=== PATIENT | male | born 1940 | race Hispanic/Latino ===

== ENCOUNTER → 2018-11-20 | Outpatient (CLI) | payer MEDICARE ==
[~2018-11-20] MED LIST: ALBUTEROL SULFATE 0.083% 2.5 MG/3 ML INH IH ONE; ASPI-1005 PO; BISA5TAB12 PO; LORA1TAB3 PO; OMEP40CA37 PO; [UNRECOGNIZED DRUG - OTHER] PO
== END | disposition home or self-care (01) ==
LOC: RESP 08:58
PROVIDERS: ATTEND Internal Medicine Cardiovascular Disease
DX: R06.09 Other forms of dyspnea (principal); R07.9 Chest pain, unspecified
CPT/HCPCS: 94060; 94727; 94729

== ENCOUNTER → 2018-12-11 | Outpatient (CLI) | payer MEDICARE ==
[~2018-12-11] MED LIST changes: -ALBUTEROL SULFATE 0.083% 2.5 MG/3 ML INH IH ONE; +OMEP40CA13 PO; -OMEP40CA37 PO
== END | disposition home or self-care (01) ==
LOC: SHCH 09:56
PROVIDERS: ATTEND Internal Medicine Cardiovascular Disease
DX: I73.9 Peripheral vascular disease, unspecified (principal); R06.09 Other forms of dyspnea; R07.9 Chest pain, unspecified; I87.2 Venous insufficiency (chronic) (peripheral)
CPT/HCPCS: 93925; 93970

== ENCOUNTER → 2019-01-19 | Outpatient (CLI) | payer MEDICARE | END | disposition home or self-care (01) | LOC: SHCH 13:45 | PROVIDERS: ATTEND Internal Medicine Cardiovascular Disease | DX: I82.812 Embolism and thrombosis of superficial veins of left lower extremity (principal) | CPT/HCPCS: 93971 ==

== ENCOUNTER → 2020-10-17 | Outpatient (CLI) | payer MEDICARE ==
[~2020-10-17] MED LIST changes: +IOHEXOL-350 75 ML VIAL IV ONE; -OMEP40CA13 PO; +OMEP40CA21 PO
== END | disposition home or self-care (01) ==
LOC: RAH 10:18
PROVIDERS: ATTEND Internal Medicine Gastroenterology
DX: I71.4 Abdominal aortic aneurysm, without rupture (principal); K74.60 Unspecified cirrhosis of liver; R16.1 Splenomegaly, not elsewhere classified; N28.1 Cyst of kidney, acquired; I70.0 Atherosclerosis of aorta; I70.298 Other atherosclerosis of native arteries of extremities, other extremity
CPT/HCPCS: 74178; Q9967

== ENCOUNTER → 2023-08-22 | Outpatient (CLI) | payer MEDICARE ==
[~2023-08-22] MED LIST changes: +BISA-151 PO; -BISA5TAB12 PO; -IOHEXOL-350 75 ML VIAL IV ONE
== END | disposition home or self-care (01) ==
LOC: SHCH 08:06
PROVIDERS: ATTEND Internal Medicine Cardiovascular Disease
DX: I08.3 Combined rheumatic disorders of mitral, aortic and tricuspid valves (principal); I87.2 Venous insufficiency (chronic) (peripheral); I87.1 Compression of vein; R94.31 Abnormal electrocardiogram [ECG] [EKG]; R07.9 Chest pain, unspecified; R06.09 Other forms of dyspnea; I73.9 Peripheral vascular disease, unspecified; I71.40 Abdominal aortic aneurysm, without rupture, unspecified
CPT/HCPCS: 93306; 93925; 93970; 93978

== ENCOUNTER 2024-03-04 02:37 | Inpatient (IN) | payer MEDICARE ==
[~2024-03-04] VITALS: Ht 162.6 cm; Wt 88.5 kg
[2024-03-04] VITALS (7 sets, daily range): BP systolic 121–150; BP diastolic 63–81; PULSE 67–105; RESP 18–20; TEMP 98–98.7; O2SAT 98–99
--- NOTE | 2024-03-04 03:08 | ERN ---
General Chief Complaint: Altered Mental Status Stated Complaint: C/O SWELLING TO FEET,CONFUSION,DROWSINESS Time Seen by MD: 02:40 History of Present Illness Initial Comments 83-year-old male brought in by daughter for altered mentation. Patient was received cirrhosis, esophageal varices. He was a distance heavy drinker. History of cirrhosis, he takes lactulose b.i.d.. He is normally a GCS of 15 an ambulatory, but beginning earlier this afternoon the daughter notes that he was shaking, in his altered more than usual. There is no focal neurologic deficits. He is unable to follow commands. He does have some mild pedal edema. No fevers, cough congestion, vomiting diarrhea or other symptoms. Allergies: Coded Allergies: No Known Drug Allergies (Unverified Allergy, Unknown, 11/10/14) Home Meds Reported Medications [Pomi-T Dietary Vit] No Conflict Check, 1 CAP PO AM 09/21/16 Aspirin (ASPIRIN 81MG CHEW TAB) 81 Mg Tab.chew, 81 MG PO AMNOON, TAB.CHEW 09/21/16 Omeprazole (Omeprazole) 40 Mg Capsule.dr, 40 MG PO HS, CAP 09/21/16 Bisacodyl (Bisacodyl) 5 Mg Tablet.dr, 5 MG PO DAILY, TAB 11/12/14 Lorazepam (Lorazepam) 1 Mg Tablet, 1 MG PO DAILY PRN for ANXIETY/AGITATION, TAB 11/12/14 Past Medical History Past Medical History: Liver Disease, Other Medical History Other: CIRRHOSIS OF LIVER Past Surgical History: None ROS Dictation Unable to obtain, patient was altered. Physical Exam Physical Exam Dictation VITAL SIGNS: Reviewed. GENERAL APPEARANCE: Alert, not oriented, unable to follow commands. HEAD AND FACE: Non-traumatic. EYES: PERRL, pink conjunctivas, eyelid no trauma, anterior chamber clear. EARS: Pinnas intact and no signs of trauma or erythema. Ear canals clear and no discharge. TMs no erythema. NOSE: No discharge, no bleeding. OROPHARYNX: Mouth normal, teeth no caries, tongue pink. Pharynx clear, no erythema. Tonsils no exudates, no abscesses noted. Mucous membrane moist. NECK: Supple, non-tender, no thyromegaly, no masses, no JVD, no bruits. BREAST: Deferred. CHEST: No tenderness, no crepitus, no paradoxical movement, no retractions. LUNGS: Clear, well-ventilated, symmetric, no rales, no wheezing, no rhonchi, no stridor, good breath sounds bilaterally. HEART: Regular rate, regular rhythm, no murmur, no gallops. VASCULAR: No peripheral edema. ABDOMEN: Soft, positive bowel sounds, nondistended, no guarding, nontender, no rebound, no masses no hepatomegaly, no splenomegaly, no Jules's sign, no hernias. RECTAL: Deferred. GENITAL: Deferred. 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 EXTREMITIES: Nontender, full range of motion. SKIN: Color pink, dry, no turgor, no rash, no lacerations, no abrasions, no contusions. LYMPHATICS: Deferred. Results Laboratory and Microbiology Lab and Micro Result Laboratory Tests Test 03/04/24 03:18 White Blood Count 3.8 K/uL (4.8-10.8) L Red Blood Count 2.83 MIL/uL (4.50-6.20) L Hemoglobin 9.4 g/dL (14.0-18.0) L Hematocrit 27.2 % (42-54) L Mean Corpuscular Volume 96.1 fL (79-99) Mean Corpuscular Hemoglobin 33.2 pg (27.0-33.0) H Mean Corpuscular Hemoglobin Concent 34.6 g/dL (32.0-36.0) Red Cell Distribution Width 14.6 % (11.0-15.5) Platelet Count 32 K/uL (130-400) L Mean Platelet Volume 10.0 fL (7.5-10.5) Immature Granulocyte % (Auto) 0.5 % (0-1) Neutrophils (%) (Auto) 62.7 % (40.0-77.0) Lymphocytes (%) (Auto) 23.8 % (21.0-51.0) Monocytes (%) (Auto) 8.2 % (3.0-13.0) Eosinophils (%) (Auto) 4.5 % (0.0-8.0) Basophils (%) (Auto) 0.3 % (0.0-5.0) Neutrophils # (Auto) 2.4 K/uL (1.8-7.7) Lymphocytes # (Auto) 0.9 K/uL (1.0-4.8) L Monocytes # (Auto) 0.3 K/uL (0.1-1.0) Eosinophils # (Auto) 0.17 K/uL (0.00-0.70) Basophils # (Auto) 0.01 K/uL (0.00-0.20) Absolute Immature Granulocyte (auto 0.02 K/uL (0-1) Nucleated Red Blood Cells 0.0 % (0.0-0.19) Platelet Morphology Comment See comments Prothrombin Time 12.8 SEC (9.6-11.6) H Prothromb Time International Ratio 1.16 (0.85-1.15) H Sodium Level 143 mmol/L (136-145) Potassium Level 4.4 mmol/L (3.5-5.1) Chloride Level 108 mmol/L (101-111) Carbon Dioxide Level 23 mmol/L (21-32) Blood Urea Nitrogen 22 mg/dL (7-18) H Creatinine 1.5 mg/dL (0.5-1.3) H Glomerular Filtration Rate Calc 46 mL/min (>90) Random Glucose 122 mg/dL (70-105) H Lactic Acid Level 2.2 mmol/L (0.8-2.5) Total Calcium 9.6 mg/dL (8.5-10.1) Magnesium Level 2.10 mg/dL (1.80-2.40) Total Bilirubin 1.0 mg/dL (0.2-1.0) Direct Bilirubin 0.3 mg/dL (0.0-0.3) Aspartate Amino Transf (AST/SGOT) 31 U/L (10-37) Alanine Aminotransferase (ALT/SGPT) 23 U/L (12-78) Alkaline Phosphatase 153 U/L (50-136) H Ammonia 189 umol/L (11-32) *H Total Creatine Kinase 50 U/L (21-232) Troponin I High Sensitivity 14.3 ng/L (4-75) B-Type Natriuretic Peptide 42 pg/mL (0-100) Total Protein 7.2 g/dL (6.0-8.3) Albumin 3.1 g/dL (3.5-5.0) L MDM CC: Altered mentation Historian: Daughter, patient is altered and unable to provide a good history Comorbidities: Advanced age, cirrhosis limitations by social determinants: None Differential diagnosis: Altered mental status in an elderly patients with a history of cirrhosis, concerned for elevated ammonia, stroke, bleeding, infection, other. Labs show pancytopenia, WBCs 3.8, hemoglobin 9.4 and platelets of 32. Coags mildly elevated consistent with cirrhosis. Chemistry shows a creatinine 1.5 otherwise stable metabolic panel. Lactic is stable. Liver enzymes are all stable. The ammonia is 189 consistent with a hepatic encephalopathy. Troponin, CK, BNP are all stable. All labs independently order an interpreted by me. CXR ( independently ordered interpreted by me) : Borderline cardiomegaly no pleural effusions or focal infiltrates. CT head ( independently were interpreted by me ): No acute bleeding or abnormalities. Hospitalist consulted. Patient started on lactulose, will admit for hepatic encephalopathy. Family agrees with the plan. ED Course Orders Procedure Category Date Status Time Ammonia LAB 03/04/24 Complete 03:01 Cardiac Panel LAB 03/04/24 Complete 03:01 Cbc With Differential LAB 03/04/24 Complete 03:01 Basic Metabolic Panel LAB 03/04/24 Complete 03:01 B-Type Natriuretic LAB 03/04/24 Complete Peptide 03:01 Magnesium LAB 03/04/24 Complete 03:01 Prothrombin Time With LAB 03/04/24 Complete INR 03:01 Urinalysis Profile LAB 03/04/24 Logged 03:01 Lactic Acid LAB 03/04/24 Complete 03:01 Blood Cult PAWEL 03/04/24 Logged 03:01 Chest 1vw RAD 03/04/24 Taken 03:01 Ct Head/Brain W/O CT 03/04/24 Logged Contrast 03:01 Hepatic Function Panel LAB 03/04/24 Complete 03:18 Lactulose 20 Gm/30 Ml PHA 03/04/24 In Process Udcup (Constulose 04:30 Current Medications Medications (Trade) Dose Ordered Sig/Rox Route PRN Reason Start Time Stop Time Status Last Admin Dose Admin Lactulose (Constulose 20gm/ 30ml Udcup) 20 gm ONCE ONCE PO 03/04/24 04:30 03/04/24 04:31 Vital Signs Date Time Temp Pulse Resp B/P (MAP) Pulse Ox O2 Delivery O2 Flow Rate FiO2 03/04/24 03:34 87 18 139/74 100 Room Air* 0 21 03/04/24 02:40 97.9 82 20 133/79 99 Room Air DX & DISP Disposition: Inpatient Departure Impression: Primary Impression: Hepatic encephalopathy Additional Impressions: Pancytopenia, Cirrhosis Critical Time: 30 minutes (Critical Care Procedure NoteAuthorized and Performed by: meTotal critical care time: Approximately 36 minutesDue to a high probability of clinically significant, life threatening deterioration, the patient required my highest level of preparedness to intervene emergently and I personally spent this critical care time directly and personally managing the patient. This critical care time included obtaining a history; examining the patient; pulse oximetry; ordering and review of studies; arranging urgent treatment with development of a management plan; evaluation of patient's response to treatment; frequent reassessment; and, discussions with other providers.This critical care time was performed to assess and manage the high probability of imminent, life-threatening deterioration that could result in multi-organ failure. It was exclusive of separately billable procedures and treating other patients and teaching time.Please see MDM section and the rest of the note for further information on patient assessment and treatment.) Condition: Stable Referrals: KELSEY ZAMORANO MD (PCP) FAITH MOLINA DO Mar 04, 2024 03:07
[2024-03-04 03:26] LABS: BASOPHILS # (AUTO) 0.01 K/uL (0.00-0.20); BASOPHILS % (AUTO) 0.3 % (0.0-5.0); EOSINOPHILS # (AUTO) 0.17 K/uL (0.00-0.70); EOSINOPHILS % (AUTO) 4.5 % (0.0-8.0); HEMATOCRIT 27.2 % (42-54); IMMATURE GRANULOCYTE ABSOLUTE 0.02 K/uL (0-1); LYMPHOCYTES # (AUTO) 0.9 K/uL (1.0-4.8); LYMPHOCYTES % (AUTO) 23.8 % (21.0-51.0); MEAN CORPUSCULAR HEMOGLOBIN 33.2 pg (27.0-33.0); MEAN CORPUSCULAR HGB CONC 34.6 g/dL (32.0-36.0); MEAN CORPUSCULAR VOLUME 96.1 fL (79-99); MONOCYTES # (AUTO) 0.3 K/uL (0.1-1.0); MONOCYTES % (AUTO) 8.2 % (3.0-13.0); NEUTROPHILS # (AUTO) 2.4 K/uL (1.8-7.7); NEUTROPHILS % (AUTO) 62.7 % (40.0-77.0); PLATELET COUNT (AUTO) 32 K/uL (130-400); RED BLOOD CELL COUNT(AUTO) 2.83 MIL/uL (4.50-6.20); RED CELL DISTRIBUTION WIDTH 14.6 % (11.0-15.5); WHITE BLOOD COUNT (AUTO) 3.8 K/uL (4.8-10.8)
--- NOTE | 2024-03-04 03:31 | NUR ---
KAMRAN MICHAEL MADE AWARE ABOUT LACTIC ACID CRITICAL LABAT THIS TIME
[2024-03-04 03:36] LABS: CREATININE 1.5 mg/dL (0.5-1.3); POTASSIUM 4.4 mmol/L (3.5-5.1)
[2024-03-04 03:44] LABS: ALBUMIN 3.1 g/dL (3.5-5.0); BILIRUBIN,DIRECT 0.3 mg/dL (0.0-0.3); MAGNESIUM 2.1 mg/dL (1.80-2.40); TOTAL PROTEIN, SERUM 7.2 g/dL (6.0-8.3)
[2024-03-04 03:45] LABS: INR 1.16 (0.85-1.15); PROTHROMBIN TIME 12.8 SEC (9.6-11.6)
[2024-03-04 03:47] LABS: B-TYPE NATRIURETIC PEPTIDE 42 pg/mL (0-100)
--- NOTE | 2024-03-04 03:56 | NUR ---
KAMRAN MICHAEL MADE AWARE OF CRITICAL AMMONIA LAB LEVEL AT THIS TIME
--- NOTE | 2024-03-04 04:19 | NUR ---
MARY KATE CAO AT BEDSIDE AT THIS TIME
[2024-03-04] MEDS: LACTULOSE 20 GM/30 ML UDCUP PO ONE (04:26)
[2024-03-04] MEDS ORDERED: hydrALAZine 20MG/ML VIAL IV PRN ×2 (04:30→11:00)
[2024-03-04] MEDS ORDERED: acetaMINOPHEN 325 MG TAB PO PRN (04:30)
[2024-03-04] MEDS ORDERED: ondanSETRON 4MG INJ IV PRN (04:30)
--- NOTE | 2024-03-04 04:41 | HP ---
History of Present Illness Reason for Visit: [facility] History of Present Illness Mr. Ceballos is an 83-year-old male that was seen and examined today on 03/04/2024. Patient is a poor historian and personal health. Patient's daughter Chantel Ceballos is at bedside and able to provide the following information. Patient was brought to the emergency department with a chief complaint of altered mental status. Onset was 03/03/2024 at 9:00 p.m.. Location is to head. Duration is constant. Character is described as" like he can not make full sentences. " there was no alleviating factors. Symptoms are aggravated with missing doses of lactulose. Today in the emergency department WBCs 3.8, hemoglobin 9.4, hematocrit 27.2, platelets 32, ammonia 189. Emergency room physician recommended patient be admitted with a diagnosis of hepatic encephalopathy. Past Medical History Patient History: Family history: Cardiovascular disease FATHER ( IN HIS SLEEP AT AGE 77YEARS) Family history: Diabetes mellitus MOTHER BROTHER BROTHER SISTER No Family History of: Cancer Chronic obstructive lung disease Family history: Alzheimer's disease Family history: Asthma Family history: Hypertension Parkinson's disease Stroke ADDITIONAL PAST MEDICAL HISTORY: [Alcoholic Liver cirrhosis, anxiety, esophageal varices] SOCIAL HISTORY: [Negative for smoking. Patient was a heavy alcohol user but quit in 2003. Negative drug use. Patient lives with his daughter Chantel. Patient requires assistance with his ADLs. Patient has good access to health care through his insurance. 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 Dyspnea, Edema, Lt Headedness, Other Gastrointestinal: No: Nausea, Vomiting, Abdominal Pain, Diarrhea, Constipation, Melena, Hematochezia, Other Genitourinary: No Dysuria, No Frequency, No Incontinence, No Hematuria, No Retention, No Other Musculoskeletal: No: other, neck pain, shoulder pain, arm pain, back pain, hand pain, leg pain, foot pain Skin: No Urticaria, No Rash, No Other Neurological: Confusion; No: Weakness, Numbness, Incoordination, Change in speech, Seizures, Other Allergies: Coded Allergies: No Known Drug Allergies (Unverified Allergy, Unknown, 11/10/14) Scheduled Aspirin (Aspirin 81MG Chew Tab), 81 MG PO AMNOON, (Reported) Bisacodyl (Bisacodyl), 5 MG PO DAILY, (Reported) Omeprazole (Omeprazole), 40 MG PO HS, (Reported) [Pomi-T Dietary Vit], 1 CAP PO AM, (Reported) Scheduled PRN Lorazepam (Lorazepam), 1 MG PO DAILY PRN for ANXIETY/AGITATION, (Reported) Exam Vital Signs Vital Signs Date Time Temp Pulse Resp B/P (MAP) Pulse Ox O2 Delivery O2 Flow Rate FiO2 03/04/24 03:34 87 18 139/74 100 Room Air* 0 21 03/04/24 02:40 97.9 General Appearance: Alert, Oriented X3, Cooperative, moderate distress HEENT: Atraumatic, EOMI Respiratory: Clear to auscultation, Normal air movement, NL respiratory effort Cardiovascular: Regular rate, Regular rhythm, Normal S1, Normal S2 Abdominal: Normal bowel sounds, Soft, No tenderness Extremities: Other (Plus two pitting edema to bilateral lower extremities) Skin: No significant lesion Neuro: Other (Unable to assess) Psych/Mental Status: Other (Patient is confused) Assessment/Plan ASSESSMENT: [ Hepatic encephalopathy, POA Liver cirrhosis, POA Thrombocytopenia, POA Normocytic hyperchromic anemia, POA Hyperlactatemia ] PLAN: [ Admit patient to medical floor as inpatient status. Trend patient's ammonia level. Administer lactulose 20 g/30 mL every 12 hours. Follow up with the radiology report on CT scan of head Fall precautions. Check iron panel Check serum ferritin Check LDH, reticulocyte count, peripheral smear Consider making patient NPO and consulting Gastroenterology if any signs of GI bleed. Check stool for occult blood. Decided against fluid resuscitation 30 mL/kg due to patient having plus two pitting edema to bilateral lower extremities and his history of liver cirrhosis Repeat lactic acid in a.m. Monitor intake and output every shift Weight patient daily 1500 mL daily fluid restriction GI prophylaxis, famotidine 20 mg by mouth once daily. DVT prophylaxis, Too's and SCDs ADVANCED CARE PLANNING 1. Which of the following were discussed? Hospice Care - Yes Therapeutic options - Yes Advance Directives - Yes- patient does not have any advance directives in place at this time, however his daughter Chantel can make decisions for him if he becomes unable. Other discussions - patient wishes to remain a full code at this time 2. Discussed with who? Patient 3. Voluntary nature of this service was explained to the patient? Yes 4. Amount of time spent - ____ 16 minutes ___ 5. Reviewed by Physician? (if this service was performed by NPP) Yes This document was generated in part using voice recognition software, occasional wrong word or sound alike substitutions may have occurred due to the inherent limitations of voice recognition software. Read the chart carefully and recognize using context, where the substitutions have occurred. Although every effort was made to edit the content, baseball glove shaper and typing errors may occur ATTESTATION BY PHYSICIAN I have seen and examined the patient. I reviewed the documentation, medical decision making, and treatment plan as noted by the mid-level provider above. I agree with the findings and plan of care. KILEY MÁRQUEZ [facility] Mar 04, 2024 04:41
[2024-03-04] MEDS ORDERED: morPHINE 2 MG SYG IVP PRN (05:00)
--- NOTE | 2024-03-04 05:48 | NUR ---
REPORT GIVEN TO MOOSE GUY AT THIS TIME
[2024-03-04 05:51] LABS: APPEARANCE,URINE CLEAR (CLEAR); BILIRUBIN,URINE NEGATIVE (NEGATIVE); COLOR,URINE YELLOW (YELLOW); GLUCOSE, URINE (UA) NEGATIVE (NEGATIVE); KETONES,URINE NEGATIVE (NEGATIVE); LEUKOCYTE ESTERASE ,URINE NEGATIVE Leu/uL (NEGATIVE); NITRATE,URINE NEGATIVE (NEGATIVE); OCCULT BLOOD,URINE LARGE (NEGATIVE); PROTEIN,URINE 20 mg/dL (NEGATIVE); UROBILINOGEN,URINE 0.2 mg/dL (0.2-1.0)
[2024-03-04 06:04] LABS: ADD UA MICROSCOPIC YES
[2024-03-04 06:07] LABS: BACTERIA,URINE RARE /HPF (None Seen); MUCUS,URINE RARE LPF (None Seen); RBC,URINE 51-100 /HPF (0-1)
[2024-03-04 07:29] LABS: RETICULOCYTE % (AUTO) 1.79 % (0.42-2.23)
[2024-03-04 08:21] LABS: % IRON SATURATION 28.7 % (30-44)
--- NOTE | 2024-03-04 08:28 | HMCIMG ---
CT HEAD WITHOUT CONTRAST INDICATION: Altered mental status TECHNIQUE: Noncontrast axial helical CT images from the vertex through the skull base using 5 mm slice thickness without contrast material. Coronal and sagittal reconstructions were also included. Dose reduction techniques was used using integrated, automated and adaptive dose reduction exposure control. CT was performed with one or more of the following dose reduction techniques: Automated exposure control, adjustment of the mA and/or kV according to patient size, or use of iterative reconstruction technique. COMPARISON: None FINDINGS: Diagnostic sensitivity of this examination is limited by patient motion artifact. Scattered and coalescent subcortical and periventricular white matter low attenuating areas likely represent residual of chronic small vessel arteriopathy and/or remote vascular insult. Generalized mild cerebral cortical atrophy is present.. No evidence for abnormal extra-axial fluid collections or masses. The ventricles and sulci are normal in size and configuration. No evidence for intracranial parenchymal, epidural, or subdural hemorrhage, mass effect or midline shift. The aleman-white matter differentiation is well preserved. No secondary evidence to suggest acute ischemia. Mild calcific plaque is present along the zamora of the cavernous segments of both internal carotid arteries. The brainstem and cerebellum appear normal. The visualized orbits appear unremarkable. The visible paranasal sinuses and mastoid air cells are clear. The calvarium appears normal. IMPRESSION: Limitations as reported. Chronic white matter ischemic changes, mild brain atrophy, and arteriosclerotic disease as described, without acute component.
--- NOTE | 2024-03-04 08:30 | HMCIMG ---
PORTABLE CHEST RADIOGRAPH INDICATION: chest pain COMPARISON: 09/21/2016 FINDINGS: Heart size is normal. The pulmonary vascularity and sandra appear normal. No abnormal pulmonary parenchymal opacity or consolidation identified. No significant pleural effusion noted. No pneumothorax detected. IMPRESSION: No radiographic evidence for any acute cardiopulmonary process.
[2024-03-04] MEDS: FAMOTIDINE 20MG TAB PO SCH (09:36)
[2024-03-04] MEDS: LACTULOSE 20 GM/30 ML UDCUP PO SCH (09:36)
[2024-03-04] MEDS ORDERED: PoTASSium chloRIDE 20MEQ/100ML 100 ML IV PRN (12:00)
[2024-03-04] MEDS ORDERED: PoTASSium chl 10% ELIXIR 20MEQ 20 MEQ/15 ML UDCUP PO PRN (12:00)
[2024-03-04] MEDS ORDERED: PoTASSium chloRIDE 20MEQ ER 20 MEQ ERTAB PO PRN (12:00)
--- NOTE | 2024-03-04 17:39 | NUR ---
Discharge Planning" Pt. lives with his spouse and children. Contact number is for his daughter Chantel Ceballos at . PCP is Dr. Zhang Osman and preferred pharmacy is [facility]. Pt. is independent with ADL's. Sometimes requires assistance. His daughter is his provider for 21 hours weekly. No home health services. Ambulates with a walker. No other DME. DCP is for home. No d/c needs at this time. Addendum: 03/04/24 at 1742 by AMBER ROSARIO RN CM Amended: Links added.
--- NOTE | 2024-03-04 19:18 | PN ---
[facility] PROGRESS NOTE Date of Service: Mar 04, 2024 Time of Service: 18:43 SUBJECTIVE: [ ] Mr. Ceballos is an 83-year-old male that was seen and examined today on 03/04/2024. Patient is a poor historian and personal health. Patient's daughter Chantel Ceballos is at bedside and able to provide the following information. Patient was brought to the emergency department with a chief complaint of altered mental status. Onset was 03/03/2024 at 9:00 p.m.. Location is to head. Duration is constant. Character is described as" like he can not make full sentences. " there was no alleviating factors. Symptoms are aggravated with missing doses of lactulose. 03/04- patient Was seen at the bedside, with his daughter present. patient is still in altered mental status and unable to understand and speak in full sentences. spoke with his daughter about his mental status baseline, she says at home he speaks well and has a good memory. he usually continues to take lactulose syrup at home, but when he misses a dosage he develops a same symptoms. She says he was admitted for hepatic encephalopathy at [facility] around February 21, 2024 and was in the hospital for about 20 days. she says they follow Oncology outpatient in the biopsy results are pending. We will continue the patient on lactulose 20 mg b.i.d. repeat ammonia levels came down from 189 to 55. Vitals stable. WBC 3.8, HB 9.4, MCV 96.1, platelet count 32, immature reticulocyte fraction 13.3, BUN22 , creatinine 1.5, GFR 46 , iron panel iron 98, TIBC 341, % saturation 28.7. Serum ferritin pending. AST31 ALT23 , ALP 153, ammonia 189. PT 12.8, INR 1.16. Occult stool blood positive. Gastrology consultation noted pending on the recommendations.we will repeat the labs in the a.m. REVIEW OF SYSTEMS CONSTITUTIONAL: Denies fevers, chills, or night sweats. No unintentional weight loss reported. NEUROLOGICAL: Denies headache, amaurosis fugax, motor weakness, sensory deficit, vertigo/spinning sensation, gait abnormalities, or tremors. ENT: No hearing loss, otalgia, otorrhea, rhinitis, rhinorrhea, hoarseness, or sore throat. CARDIOVASCULAR: Denies any exertional angina, dyspnea on exertion, orthopnea, paroxysmal nocturnal dyspnea, palpitations, life-threatening arrhythmias, claudication. PULMONARY: Denies any shortness of breath, cough, phlegm/sputum, hemoptysis, pleuritic chest pain. SLEEP: Denies morning headaches, daytime somnolence or napping. Denies difficulty falling asleep, staying asleep, waking from sleep. Denies knowledge of snoring. GASTROINTESTINAL: Denies any type of dysphagia to either liquids or solids. De nies nausea, vomiting, pyrosis, early satiety, abdominal pain, diarrhea, constipation, or changes in stool consistency or caliber. Denies coffee-ground emesis, hematemesis, hematochezia, or melanotic stools. GENITOURINARY: Denies frequency, urgency, nocturia, hematuria or incontinence (Storage/Irritative symptoms.) Low urinary stream, straining to void, urinary intermittency or hesitancy, splitting of the voiding stream, terminal dribbling. ENDOCRINOLOGIC: Denies polyuria, polydipsia, polyphagia or heat/cold intolerances. HEMATOLOGIC: Denies thrombophilia/previous clots, or coagulopathy/bleeding disorders. ONCOLOGIC: Denies personal history of malignancy. DERMATOLOGIC: Denies rashes or pruritus. PSYCHIATRIC: Denies any suicidal or homicidal ideation. Denies hallucinations. PHYSICAL EXAM GENERAL APPEARANCE: The patient is awake, alert, and oriented, in no acute cardiopulmonary distress. NEUROLOGICAL: Cranial nerves II-XII grossly intact. Motor is 5/5 in bilateral upper and lower extremities proximal to distal. No sensory deficits. HEENT: Face is symmetric. Pupils are equal and reactive. Extraocular movements are intact. NECK: Supple. No JVD. No thyromegaly. No submental, submandibular, pre- /postauricular, occipital or supraclavicular lymphadenopathy. CHEST: Normal chest expansion. No Telemetry. LUNGS: Absence of any rales, rhonchi or any wheezing. CARDIOVASCULAR: Regular. S1 and S2 normal. No appreciable rubs, murmurs or gallops. ABDOMEN: Soft, nontender, and nondistended. There is no rebound, voluntary guarding, or rigidity. : Deferred. No Tang. EXTREMITIES: Non-edematous and not cyanotic. No clubbing. Good capillary refill. SKIN: No skin breakdown. Vital Signs (last 8hr) Date Time Temp Pulse Resp B/P (MAP) Pulse Ox O2 Delivery O2 Flow Rate FiO2 03/04/24 16:41 98.1 67 18 121/63 96 Room Air 03/04/24 11:34 98.1 90 18 121/67 99 Room Air LABS: Laboratory: Test 03/04/24 15:52 03/04/24 13:20 03/04/24 09:40 03/04/24 07:20 Range/Units Whole Blood Glucose 103 70-110 MG/DL Stool Occult Blood POSITIVE H NEGATIVE Ammonia 55 #H 11-32 umol/L Reticulocyte Count (auto) 1.11390 0.42-2.23 % Immature Reticulocyte Fraction 13.30 H 0.18-0.48 % Lactic Acid Level 3.0 H 0.8-2.5 mmol/L Iron Level 98 65-175 mcg/dL Total Iron Binding Capacity 341 250-450 mcg/dL Percent Iron Saturation 28.7 L 30-44 % Lactate Dehydrogenase 195 81-234 U/L Test 03/04/24 05:38 03/04/24 03:18 Range/Units Urine Color YELLOW YELLOW Urine Appearance CLEAR CLEAR Urine pH 6.0 5.0-8.0 Urine Specific [place] 1.022 1.001-1.031 Urine Protein 20 H NEGATIVE mg/dL Urine Glucose (UA) NEGATIVE NEGATIVE mg/dL Urine Ketones NEGATIVE NEGATIVE mg/dL Urine Occult Blood LARGE H NEGATIVE Urine Nitrate NEGATIVE NEGATIVE Urine Bilirubin NEGATIVE NEGATIVE mg/dL Urine Urobilinogen 0.2 0.2-1.0 mg/dL Urine Leukocyte Esterase NEGATIVE NEGATIVE [place]/uL Urine RBC 51-100 H 0-1 /HPF Urine WBC 2-5 H 0-1 /HPF Urine Bacteria RARE None Seen /HPF White Blood Count 3.8 L 4.8-10.8 K/uL Red Blood Count 2.83 L 4.50-6.20 MIL/uL Hemoglobin 9.4 L 14.0-18.0 g/dL Hematocrit 27.2 L 42-54 % Mean Corpuscular Volume 96.1 79-99 fL Mean Corpuscular Hemoglobin 33.2 H 27.0-33.0 pg Mean Corpuscular Hemoglobin Concent 34.6 32.0-36.0 g/dL Red Cell Distribution Width 14.6 11.0-15.5 % Platelet Count 32 L 130-400 K/uL Mean Platelet Volume 10.0 7.5-10.5 fL Immature Granulocyte % (Auto) 0.5 0-1 % Neutrophils (%) (Auto) 62.7 40.0-77.0 % Lymphocytes (%) (Auto) 23.8 21.0-51.0 % Monocytes (%) (Auto) 8.2 3.0-13.0 % Eosinophils (%) (Auto) 4.5 0.0-8.0 % Basophils (%) (Auto) 0.3 0.0-5.0 % Neutrophils # (Auto) 2.4 1.8-7.7 K/uL Lymphocytes # (Auto) 0.9 L 1.0-4.8 K/uL Monocytes # (Auto) 0.3 0.1-1.0 K/uL Eosinophils # (Auto) 0.17 0.00-0.70 K/uL Basophils # (Auto) 0.01 0.00-0.20 K/uL Absolute Immature Granulocyte (auto 0.02 0-1 K/uL Nucleated Red Blood Cells 0.0 0.0-0.19 % Platelet Morphology Comment See comments Prothrombin Time 12.8 H 9.6-11.6 SEC Prothromb Time International Ratio 1.16 H 0.85-1.15 Sodium Level 143 136-145 mmol/L Potassium Level 4.4 3.5-5.1 mmol/L Chloride Level 108 101-111 mmol/L Carbon Dioxide Level 23 21-32 mmol/L Blood Urea Nitrogen 22 H 7-18 mg/dL Creatinine 1.5 H 0.5-1.3 mg/dL Glomerular Filtration Rate Calc 46 >90 mL/min Random Glucose 122 H 70-105 mg/dL Total Calcium 9.6 8.5-10.1 mg/dL Magnesium Level 2.10 1.80-2.40 mg/dL Total Bilirubin 1.0 0.2-1.0 mg/dL Direct Bilirubin 0.3 0.0-0.3 mg/dL Aspartate Amino Transf (AST/SGOT) 31 10-37 U/L Alanine Aminotransferase (ALT/SGPT) 23 12-78 U/L Alkaline Phosphatase 153 H 50-136 U/L Total Creatine Kinase 50 21-232 U/L Troponin I High Sensitivity 14.3 4-75 ng/L B-Type Natriuretic Peptide 42 0-100 pg/mL Total Protein 7.2 6.0-8.3 g/dL Albumin 3.1 L 3.5-5.0 g/dL Current Medications Medications (Trade) Dose Ordered Sig/Rox Route PRN Reason Start Time Stop Time Status Last Admin Dose Admin Acetaminophen (TYLenol 325MG TAB) 650 mg Q6H PRN PO TEMPERATURE GREATER THAN 101.5 03/04/24 04:30 04/03/24 04:29 Famotidine (Pepcid 20mg Tab) 20 mg DAILY PO 03/04/24 09:00 04/03/24 08:59 03/04/24 09:36 20 MG Hydralazine HCl (APRESOLine 20MG INJ) 10 mg Q6H PRN IV For:SBP above 160;DBP above 90 03/04/24 04:30 03/04/24 10:39 DC Hydralazine HCl (APRESOLine 20MG INJ) 20 mg Q6H PRN IV ADMINISTER FOR SBP > 160 03/04/24 11:00 04/03/24 10:59 Lactulose (Constulose 20gm/ 30ml Udcup) 20 gm BID PO 03/04/24 09:00 04/03/24 08:59 03/04/24 09:36 20 GM Morphine Sulfate (morPHINE 2MG SYG) 2 mg Q4H PRN IVP SEVERE PAIN (7-10) 03/04/24 05:00 03/11/24 04:59 Ondansetron HCl (zoFRAN 4MG INJ) 4 mg Q6H PRN IV NAUSEA/VOMITING 03/04/24 04:30 04/03/24 04:29 Potassium Chloride 100 ml @ 100 mls/hr AD PRN IV POTASSIUM PROTOCOL 03/04/24 12:00 04/03/24 11:59 Potassium Chloride (K-Dur/Klor-Con 20meq) 20 meq AD PRN PO POTASSIUM PROTOCOL 03/04/24 12:00 04/03/24 11:59 Potassium Chloride (KCl 10% Elixir 20meq/15ml) 20 meq AD PRN PO POTASSIUM PROTOCOL 03/04/24 12:00 04/03/24 11:59 DIAGNOSTICS / RADIOLOGY: [ ] ASSESSMENT: [ Hepatic encephalopathy, POA Liver cirrhosis, POA Thrombocytopenia, POA MARY ANN on CKD POA Normocytic hyperchromic anemia, POA Hyperlactatemia] PLAN: on consistent carb diet continue trending patient's ammonia level. continue Administer lactulose 20 g/30 mL every 12 hours. Follow up with the radiology report on CT scan of head-hronic white matter ischemic changes, mild brain atrophy, and arteriosclerotic disease as described, without acute component. Fall precautions. GI consultation noted pending on the recommendations stool for occult blood. positive Decided against fluid resuscitation 30 mL/kg due to patient having plus two pitting edema to bilateral lower extremities and his history of liver cirrhosis Repeat lactic acid in a.m, ferritin levels, CbP, CMP, ammonia. Monitor intake and output every shift Weight patient daily 1500 mL daily fluid restriction GI prophylaxis, famotidine 20 mg by mouth once daily. DVT prophylaxis, Too's and SCDs ATTESTATION BY PHYSICIAN I have seen and examined the patient. I reviewed the documentation, medical decision making, and treatment plan as noted by the mid-level provider above. I agree with the findings and plan of care. Es Patel MD, AISHWARYA MD Mar 04, 2024 19:17
[2024-03-05] VITALS (8 sets, daily range): BP systolic 104–130; BP diastolic 50–71; PULSE 51–92; RESP 18–20; TEMP 97.8–99.4; O2SAT 98–99
[2024-03-05 05:05] LABS: BASOPHILS # (AUTO) 0.02 K/uL (0.00-0.20); BASOPHILS % (AUTO) 0.7 % (0.0-5.0); EOSINOPHILS # (AUTO) 0.14 K/uL (0.00-0.70); EOSINOPHILS % (AUTO) 4.6 % (0.0-8.0); HEMATOCRIT 25.8 % (42-54); LYMPHOCYTES # (AUTO) 0.5 K/uL (1.0-4.8); LYMPHOCYTES % (AUTO) 17.2 % (21.0-51.0); MEAN CORPUSCULAR HEMOGLOBIN 32.8 pg (27.0-33.0); MEAN CORPUSCULAR HGB CONC 32.9 g/dL (32.0-36.0); MEAN CORPUSCULAR VOLUME 99.6 fL (79-99); MONOCYTES # (AUTO) 0.4 K/uL (0.1-1.0); MONOCYTES % (AUTO) 11.6 % (3.0-13.0); NEUTROPHILS % (AUTO) 65.9 % (40.0-77.0); PLATELET COUNT (AUTO) 29 K/uL (130-400); RED BLOOD CELL COUNT(AUTO) 2.59 MIL/uL (4.50-6.20); RED CELL DISTRIBUTION WIDTH 14.9 % (11.0-15.5)
[2024-03-05 05:27] LABS: CREATININE 1.5 mg/dL (0.5-1.3); MAGNESIUM 1.8 mg/dL (1.80-2.40); PHOSPHORUS 3.2 mg/dL (2.5-4.9); POTASSIUM 3.9 mmol/L (3.5-5.1)
[2024-03-05 06:31] LABS: EOSINOPHILS % (MANUAL) 5 % (1-6); LYMPHOCYTES % (MANUAL) 17 % (22-44); MONOCYTES % (MANUAL) 4 % (2-9); SEGMENTED NEUTROPHILS % 74 % (40-70); TOTAL CELLS COUNTED 100
[2024-03-05 06:32] LABS: MAN.DIFF COMMENT-IMPRESSION MANUAL DIFFERENTIAL; PLATELET MORPHOLOGY COMMENT MARKED DECREASE; WBC MORPHOLOGY HYPERSEGMENT NEUT 1+
[2024-03-05] MEDS ORDERED: LACTULOSE 20 GM/30 ML UDCUP PO PRN (11:00)
[2024-03-05] MEDS: LACTULOSE 20 GM/30 ML UDCUP PO PRN (13:47)
--- NOTE | 2024-03-05 13:58 | PN ---
[facility] PROGRESS NOTE Date of Service: Mar 05, 2024 Time of Service: 13:57 SUBJECTIVE: [ ] Mr. Ceballos is an 83-year-old male that was seen and examined today on 03/04/2024. Patient is a poor historian and personal health. Patient's daughter Chantel Ceballos is at bedside and able to provide the following information. Patient was brought to the emergency department with a chief complaint of altered mental status. Onset was 03/03/2024 at 9:00 p.m.. Location is to head. Duration is constant. Character is described as" like he can not make full sentences. " there was no alleviating factors. Symptoms are aggravated with missing doses of lactulose. 03/04- patient Was seen at the bedside, with his daughter present. patient is still in altered mental status and unable to understand and speak in full sentences. spoke with his daughter about his mental status baseline, she says at home he speaks well and has a good memory. he usually continues to take lactulose syrup at home, but when he misses a dosage he develops a same symptoms. She says he was admitted for hepatic encephalopathy at [facility] around February 21, 2024 and was in the hospital for about 20 days. she says they follow Oncology outpatient in the biopsy results are pending. We will continue the patient on lactulose 20 mg b.i.d. repeat ammonia levels came down from 189 to 55. Vitals stable. WBC 3.8, HB 9.4, MCV 96.1, platelet count 32, immature reticulocyte fraction 13.3, BUN22 , creatinine 1.5, GFR 46 , iron panel iron 98, TIBC 341, % saturation 28.7. Serum ferritin pending. AST31 ALT23 , ALP 153, ammonia 189. PT 12.8, INR 1.16. Occult stool blood positive. Gastrology consultation noted pending on the recommendations.we will repeat the labs in the a.m. 03/05-patient was seen at the bedside, with his daughter present. Patient seems to be understanding, better than yesterday. His altered mental status has imp roved. Patient only had 1 bowel movement yesterday, ammonia last night was 80 and increased to 112 today morning. Gave 45 mL of lactulose at around 1:00 p.m., with scheduled dose of lactulose 30 mL in the morning. Patient still did not have any bowel movement, he has a scheduled dose of 30 mL at night. Change the dose of lactulose from 30 mL b.i.d. to t.i.d. gastrology consultation noted. Ordered for an EGD tomorrow morning NPO after midnight.His vitals are stable. Remarkable labs WBC 3, HB came down to 8.5 from 9.4, platelet count down from 32 to 29, BUN 21, creatinine 1.5, GFR 46. We will recheck the ammonia levels q.12h. And labs in the a.m. REVIEW OF SYSTEMS CONSTITUTIONAL: Denies fevers, chills, or night sweats. No unintentional weight loss reported. NEUROLOGICAL: Denies headache, amaurosis fugax, motor weakness, sensory deficit, vertigo/spinning sensation, gait abnormalities, or tremors. ENT: No hearing loss, otalgia, otorrhea, rhinitis, rhinorrhea, hoarseness, or sore throat. CARDIOVASCULAR: Denies any exertional angina, dyspnea on exertion, orthopnea, paroxysmal nocturnal dyspnea, palpitations, life-threatening arrhythmias, claudication. PULMONARY: Denies any shortness of breath, cough, phlegm/sputum, hemoptysis, pleuritic chest pain. SLEEP: Denies morning headaches, daytime somnolence or napping. Denies difficulty falling asleep, staying asleep, waking from sleep. Denies knowledge of snoring. GASTROINTESTINAL: Denies any type of dysphagia to either liquids or solids. Denies nausea, vomiting, pyrosis, early satiety, abdominal pain, diarrhea, con stipation, or changes in stool consistency or caliber. Denies coffee-ground emesis, hematemesis, hematochezia, or melanotic stools. GENITOURINARY: Denies frequency, urgency, nocturia, hematuria or incontinence (Storage/Irritative symptoms.) Low urinary stream, straining to void, urinary intermittency or hesitancy, splitting of the voiding stream, terminal dribbling. ENDOCRINOLOGIC: Denies polyuria, polydipsia, polyphagia or heat/cold intolerances. HEMATOLOGIC: Denies thrombophilia/previous clots, or coagulopathy/bleeding disorders. ONCOLOGIC: Denies personal history of malignancy. DERMATOLOGIC: Denies rashes or pruritus. PSYCHIATRIC: Denies any suicidal or homicidal ideation. Denies hallucinations. PHYSICAL EXAM GENERAL APPEARANCE: The patient is awake, alert, and oriented, in no acute card iopulmonary distress. NEUROLOGICAL: Cranial nerves II-XII grossly intact. Motor is 5/5 in bilateral upper and lower extremities proximal to distal. No sensory deficits. HEENT: Face is symmetric. Pupils are equal and reactive. Extraocular movements are intact. NECK: Supple. No JVD. No thyromegaly. No submental, submandibular, pre- /postauricular, occipital or supraclavicular lymphadenopathy. CHEST: Normal chest expansion. No Telemetry. LUNGS: Absence of any rales, rhonchi or any wheezing. CARDIOVASCULAR: Regular. S1 and S2 normal. No appreciable rubs, murmurs or gallops. ABDOMEN: Soft, nontender, and nondistended. There is no rebound, voluntary guarding, or rigidity. : Deferred. No Tang. EXTREMITIES: Non-edematous and not cyanotic. No clubbing. Good capillary refill. SKIN: No skin breakdown. Vital Signs (last 8hr) Date Time Temp Pulse Resp B/P (MAP) Pulse Ox O2 Delivery O2 Flow Rate FiO2 03/05/24 11:53 98.2 51 18 104/50 98 Room Air 03/05/24 08:13 99.3 68 18 128/56 98 Room Air LABS: Laboratory: Test 03/05/24 11:23 03/05/24 09:45 03/05/24 04:45 03/04/24 13:20 Range/Units Whole Blood Glucose 134 H 70-110 MG/DL Ammonia 112 *H 11-32 umol/L White Blood Count 3.0 L 4.8-10.8 K/uL Red Blood Count 2.59 L 4.50-6.20 MIL/uL Hemoglobin 8.5 L 14.0-18.0 g/dL Hematocrit 25.8 L 42-54 % Mean Corpuscular Volume 99.6 H 79-99 fL Mean Corpuscular Hemoglobin 32.8 27.0-33.0 pg Mean Corpuscular Hemoglobin Concent 32.9 32.0-36.0 g/dL Red Cell Distribution Width 14.9 11.0-15.5 % Platelet Count 29 L 130-400 K/uL Mean Platelet Volume 9.7 7.5-10.5 fL Immature Granulocyte % (Auto) 0.0 0-1 % Neutrophils (%) (Auto) 65.9 40.0-77.0 % Lymphocytes (%) (Auto) 17.2 L 21.0-51.0 % Monocytes (%) (Auto) 11.6 3.0-13.0 % Eosinophils (%) (Auto) 4.6 0.0-8.0 % Basophils (%) (Auto) 0.7 0.0-5.0 % Neutrophils # (Auto) 2.0 1.8-7.7 K/uL Lymphocytes # (Auto) 0.5 L 1.0-4.8 K/uL Monocytes # (Auto) 0.4 0.1-1.0 K/uL Eosinophils # (Auto) 0.14 0.00-0.70 K/uL Basophils # (Auto) 0.02 0.00-0.20 K/uL Absolute Immature Granulocyte (auto 0.00 0-1 K/uL Segmented Neutrophils % 74 H 40-70 % Lymphocytes % (Manual) 17 L 22-44 % Monocytes % (Manual) 4 2-9 % Eosinophils % (Manual) 5 1-6 % Nucleated Red Blood Cells 0.0 0.0-0.19 % Differential Comment MANUAL DIFFERENTIAL White Cell Morphology Comment HYPERSEGMENT NEUT 1+ Platelet Morphology Comment MARKED DECREASE Red Blood Cell Morphology NORMAL Sodium Level 142 136-145 mmol/L Potassium Level 3.9 3.5-5.1 mmol/L Chloride Level 108 101-111 mmol/L Carbon Dioxide Level 23 21-32 mmol/L Blood Urea Nitrogen 21 H 7-18 mg/dL Creatinine 1.5 H 0.5-1.3 mg/dL Glomerular Filtration Rate Calc 46 >90 mL/min Random Glucose 107 H 70-105 mg/dL Lactic Acid Level 2.0 0.8-2.5 mmol/L Total Calcium 9.0 8.5-10.1 mg/dL Phosphorus Level 3.2 2.5-4.9 mg/dL Magnesium Level 1.80 1.80-2.40 mg/dL Ferritin 98 30-400 ng/mL Stool Occult Blood POSITIVE H NEGATIVE Test 03/04/24 07:20 03/04/24 05:38 03/04/24 03:18 Range/Units Reticulocyte Count (auto) 1.46984 0.42-2.23 % Immature Reticulocyte Fraction 13.30 H 0.18-0.48 % Iron Level 98 65-175 mcg/dL Total Iron Binding Capacity 341 250-450 mcg/dL Percent Iron Saturation 28.7 L 30-44 % Lactate Dehydrogenase 195 81-234 U/L Urine Color YELLOW YELLOW Urine Appearance CLEAR CLEAR Urine pH 6.0 5.0-8.0 Urine Specific [place] 1.022 1.001-1.031 Urine Protein 20 H NEGATIVE mg/dL Urine Glucose (UA) NEGATIVE NEGATIVE mg/dL Urine Ketones NEGATIVE NEGATIVE mg/dL Urine Occult Blood LARGE H NEGATIVE Urine Nitrate NEGATIVE NEGATIVE Urine Bilirubin NEGATIVE NEGATIVE mg/dL Urine Urobilinogen 0.2 0.2-1.0 mg/dL Urine Leukocyte Esterase NEGATIVE NEGATIVE [place]/uL Urine RBC 51-100 H 0-1 /HPF Urine WBC 2-5 H 0-1 /HPF Urine Bacteria RARE None Seen /HPF Prothrombin Time 12.8 H 9.6-11.6 SEC Prothromb Time International Ratio 1.16 H 0.85-1.15 Total Bilirubin 1.0 0.2-1.0 mg/dL Direct Bilirubin 0.3 0.0-0.3 mg/dL Aspartate Amino Transf (AST/SGOT) 31 10-37 U/L Alanine Aminotransferase (ALT/SGPT) 23 12-78 U/L Alkaline Phosphatase 153 H 50-136 U/L Total Creatine Kinase 50 21-232 U/L Troponin I High Sensitivity 14.3 4-75 ng/L B-Type Natriuretic Peptide 42 0-100 pg/mL Total Protein 7.2 6.0-8.3 g/dL Albumin 3.1 L 3.5-5.0 g/dL Current Medications Medications (Trade) Dose Ordered Sig/Rox Route PRN Reason Start Time Stop Time Status Last Admin Dose Admin Acetaminophen (TYLenol 325MG TAB) 650 mg Q6H PRN PO TEMPERATURE GREATER THAN 101.5 03/04/24 04:30 04/03/24 04:29 Famotidine (Pepcid 20mg Tab) 20 mg DAILY PO 03/04/24 09:00 04/03/24 08:59 03/05/24 08:58 20 MG Hydralazine HCl (APRESOLine 20MG INJ) 10 mg Q6H PRN IV For:SBP above 160;DBP above 90 03/04/24 04:30 03/04/24 10:39 DC Hydralazine HCl (APRESOLine 20MG INJ) 20 mg Q6H PRN IV ADMINISTER FOR SBP > 160 03/04/24 11:00 04/03/24 10:59 Lactulose (Constulose 20gm/ 30ml Udcup) 20 gm BID PO 03/04/24 09:00 03/05/24 10:56 DC 03/05/24 08:58 20 GM Lactulose (Constulose 20gm/ 30ml Udcup) 20 gm BID PO 03/05/24 21:00 04/04/24 20:59 Lactulose (Constulose 20gm/ 30ml Udcup) 30 gm BID PRN PO CONSTIPATION 03/05/24 11:30 04/04/24 11:29 03/05/24 13:47 30 GM Lactulose (Constulose 20gm/ 30ml Udcup) 40 gm BID PRN PO CONSTIPATION 03/05/24 11:00 03/05/24 11:20 DC Morphine Sulfate (morPHINE 2MG SYG) 2 mg Q4H PRN IVP SEVERE PAIN (7-10) 03/04/24 05:00 03/11/24 04:59 Ondansetron HCl (zoFRAN 4MG INJ) 4 mg Q6H PRN IV NAUSEA/VOMITING 03/04/24 04:30 04/03/24 04:29 Potassium Chloride 100 ml @ 100 mls/hr AD PRN IV POTASSIUM PROTOCOL 03/04/24 12:00 04/03/24 11:59 Potassium Chloride (K-Dur/Klor-Con 20meq) 20 meq AD PRN PO POTASSIUM PROTOCOL 03/04/24 12:00 04/03/24 11:59 Potassium Chloride (KCl 10% Elixir 20meq/15ml) 20 meq AD PRN PO POTASSIUM PROTOCOL 03/04/24 12:00 04/03/24 11:59 DIAGNOSTICS / RADIOLOGY: [ ] ASSESSMENT: [ Hepatic encephalopathy, POA Liver cirrhosis, POA Thrombocytopenia, POA MARY ANN on CKD POA Normocytic hyperchromic anemia, POA Hyperlactatemia] PLAN: on consistent carb diet continue trending patient's ammonia level. continue Administer lactulose 20 g/30 mL every 12 hours. Follow up with the radiology report on CT scan of head-hronic white matter ischemic changes, mild brain atrophy, and arteriosclerotic disease as described, without acute component. Fall precautions. GI consultation noted pending on the recommendations stool for occult blood. positive Decided against fluid resuscitation 30 mL/kg due to patient having plus two pitting edema to bilateral lower extremities and his history of liver cirrhosis Repeat lactic acid in a.m, ferritin levels, CbP, CMP, ammonia. Monitor intake and output every shift Weight patient daily 1500 mL daily fluid restriction GI prophylaxis, famotidine 20 mg by mouth once daily. DVT prophylaxis, Too's and SCDs ATTESTATION BY PHYSICIAN I have seen and examined the patient. I reviewed the documentation, medical decision making, and treatment plan as noted by the mid-level provider above. I agree with the findings and plan of care. Es Patel MD, AISHWARYA MD Mar 05, 2024 13:58
--- NOTE | 2024-03-05 18:39 | CONS ---
GASTROENTEROLOGY CONSULTATION NOTE Date of Consultation: Mar 05, 2024 Time of Consultation: 18:37 History of Present Illness: This is an 83-year-old male with past medical history of cirrhosis who presented due to hepatic encephalopathy. He is receiving lactulose. We were consulted due to positive FOBT. Hemoglobin trended down to 8.5 with a platelet count of 29. Patient had EGD in February revealing portal hypertensive gastropathy and grade 1 esophageal varices. Review of Systems: CONSTITUTIONAL: No malaise or change in sensation of wellbeing. ENMT: No rhinorrhea, otorrhea, sinus pain, ear ache. CARDIOVASCULAR: No angina, palpitations, orthopnea or paroxysmal dyspnea. RESPIRATORY: No SOB. GASTROINTESTINAL: No abdominal pain, nausea, vomiting, diarrhea, hematemesis, melena or change in the patient's habitual bowel movements consistency/number. GENITOURINARY: No dysuria, hematuria or change in bladder continence. MUSCULOSKELETAL: No new muscle pain or decrease in muscular strength. No new joint swelling, redness or tenderness. SKIN: No new rash. Past Medical History: [ ] Past Surgical History: [ ] Past Social History: [ ] Family History: [ ] Coded Allergies: No Known Drug Allergies (Unverified Allergy, Unknown, 11/10/14) Physical Exam: GEN: Awake, alert, oriented in person, time and place, and in no acute distress. HEENT: No sinus tenderness. Tympanic membranes were not examined. No rhinorrhea. Oral pharyngeal mucosa is pink, moist and within normal limits. Neck is supple with no cervical lymphadenopathy, thyromegaly or JVD. CHEST: Inspection, palpation and percussion of the chest were unremarkable. Lung auscultation revealed normal breath sounds bilaterally. CARDIAC: PMI is within normal limits. Heart sounds are regular. Normal S1, S2. No gallop or murmur. ABD: Soft, non-tender and not distended. No peritoneal signs on palpation. No organomegaly. Normal bowel sounds. EXT: No cyanosis or clubbing. No edema. SKIN: Intact. No rashes. JOINTS: No evidence of synovitis or acute arthritis. NEURO: Alert and oriented to name, place and person. Cranial nerve examination is unremarkable. No focal motor deficits. Normal speech. Gait is normal. Strength is normal. Vital Sign (Last 24 Hours) 03/04/24 03/05/24 20:00 18:04 Temp 98.1 Pulse 65 Resp 18 B/P (MAP) 120/64 Pulse Ox 99 O2 Delivery Room Air O2 Flow Rate 0 FiO2 21 Intake & Output (last 24hrs) 03/04/24 03/04/24 03/05/24 15:00 23:00 07:00 Intake Total 400 ml 200 ml Balance 400 ml 200 ml Laboratory: [ ] Laboratory: Test 03/05/24 15:50 03/05/24 09:45 03/05/24 04:45 03/04/24 13:20 Range/Units Whole Blood Glucose 137 H 70-110 MG/DL Ammonia 112 *H 11-32 umol/L White Blood Count 3.0 L 4.8-10.8 K/uL Red Blood Count 2.59 L 4.50-6.20 MIL/uL Hemoglobin 8.5 L 14.0-18.0 g/dL Hematocrit 25.8 L 42-54 % Mean Corpuscular Volume 99.6 H 79-99 fL Mean Corpuscular Hemoglobin 32.8 27.0-33.0 pg Mean Corpuscular Hemoglobin Concent 32.9 32.0-36.0 g/dL Red Cell Distribution Width 14.9 11.0-15.5 % Platelet Count 29 L 130-400 K/uL Mean Platelet Volume 9.7 7.5-10.5 fL Immature Granulocyte % (Auto) 0.0 0-1 % Neutrophils (%) (Auto) 65.9 40.0-77.0 % Lymphocytes (%) (Auto) 17.2 L 21.0-51.0 % Monocytes (%) (Auto) 11.6 3.0-13.0 % Eosinophils (%) (Auto) 4.6 0.0-8.0 % Basophils (%) (Auto) 0.7 0.0-5.0 % Neutrophils # (Auto) 2.0 1.8-7.7 K/uL Lymphocytes # (Auto) 0.5 L 1.0-4.8 K/uL Monocytes # (Auto) 0.4 0.1-1.0 K/uL Eosinophils # (Auto) 0.14 0.00-0.70 K/uL Basophils # (Auto) 0.02 0.00-0.20 K/uL Absolute Immature Granulocyte (auto 0.00 0-1 K/uL Segmented Neutrophils % 74 H 40-70 % Lymphocytes % (Manual) 17 L 22-44 % Monocytes % (Manual) 4 2-9 % Eosinophils % (Manual) 5 1-6 % Nucleated Red Blood Cells 0.0 0.0-0.19 % Differential Comment MANUAL DIFFERENTIAL White Cell Morphology Comment HYPERSEGMENT NEUT 1+ Platelet Morphology Comment MARKED DECREASE Red Blood Cell Morphology NORMAL Sodium Level 142 136-145 mmol/L Potassium Level 3.9 3.5-5.1 mmol/L Chloride Level 108 101-111 mmol/L Carbon Dioxide Level 23 21-32 mmol/L Blood Urea Nitrogen 21 H 7-18 mg/dL Creatinine 1.5 H 0.5-1.3 mg/dL Glomerular Filtration Rate Calc 46 >90 mL/min Random Glucose 107 H 70-105 mg/dL Lactic Acid Level 2.0 0.8-2.5 mmol/L Total Calcium 9.0 8.5-10.1 mg/dL Phosphorus Level 3.2 2.5-4.9 mg/dL Magnesium Level 1.80 1.80-2.40 mg/dL Ferritin 98 30-400 ng/mL Stool Occult Blood POSITIVE H NEGATIVE Test 03/04/24 07:20 03/04/24 05:38 03/04/24 03:18 Range/Units Reticulocyte Count (auto) 1.86640 0.42-2.23 % Immature Reticulocyte Fraction 13.30 H 0.18-0.48 % Iron Level 98 65-175 mcg/dL Total Iron Binding Capacity 341 250-450 mcg/dL Percent Iron Saturation 28.7 L 30-44 % Lactate Dehydrogenase 195 81-234 U/L Urine Color YELLOW YELLOW Urine Appearance CLEAR CLEAR Urine pH 6.0 5.0-8.0 Urine Specific [place] 1.022 1.001-1.031 Urine Protein 20 H NEGATIVE mg/dL Urine Glucose (UA) NEGATIVE NEGATIVE mg/dL Urine Ketones NEGATIVE NEGATIVE mg/dL Urine Occult Blood LARGE H NEGATIVE Urine Nitrate NEGATIVE NEGATIVE Urine Bilirubin NEGATIVE NEGATIVE mg/dL Urine Urobilinogen 0.2 0.2-1.0 mg/dL Urine Leukocyte Esterase NEGATIVE NEGATIVE [place]/uL Urine RBC 51-100 H 0-1 /HPF Urine WBC 2-5 H 0-1 /HPF Urine Bacteria RARE None Seen /HPF Prothrombin Time 12.8 H 9.6-11.6 SEC Prothromb Time International Ratio 1.16 H 0.85-1.15 Total Bilirubin 1.0 0.2-1.0 mg/dL Direct Bilirubin 0.3 0.0-0.3 mg/dL Aspartate Amino Transf (AST/SGOT) 31 10-37 U/L Alanine Aminotransferase (ALT/SGPT) 23 12-78 U/L Alkaline Phosphatase 153 H 50-136 U/L Total Creatine Kinase 50 21-232 U/L Troponin I High Sensitivity 14.3 4-75 ng/L B-Type Natriuretic Peptide 42 0-100 pg/mL Total Protein 7.2 6.0-8.3 g/dL Albumin 3.1 L 3.5-5.0 g/dL Current Medications Medications (Trade) Dose Ordered Sig/Rox Route PRN Reason Start Time Stop Time Status Last Admin Dose Admin Acetaminophen (TYLenol 325MG TAB) 650 mg Q6H PRN PO TEMPERATURE GREATER THAN 101.5 03/04/24 04:30 04/03/24 04:29 Famotidine (Pepcid 20mg Tab) 20 mg DAILY PO 03/04/24 09:00 04/03/24 08:59 03/05/24 08:58 20 MG Hydralazine HCl (APRESOLine 20MG INJ) 10 mg Q6H PRN IV For:SBP above 160;DBP above 90 03/04/24 04:30 03/04/24 10:39 DC Hydralazine HCl (APRESOLine 20MG INJ) 20 mg Q6H PRN IV ADMINISTER FOR SBP > 160 03/04/24 11:00 04/03/24 10:59 Lactulose (Constulose 20gm/ 30ml Udcup) 20 gm BID PO 03/04/24 09:00 03/05/24 10:56 DC 03/05/24 08:58 20 GM Lactulose (Constulose 20gm/ 30ml Udcup) 20 gm BID PO 03/05/24 21:00 04/04/24 20:59 Lactulose (Constulose 20gm/ 30ml Udcup) 30 gm BID PRN PO CONSTIPATION 03/05/24 11:30 04/04/24 11:29 03/05/24 13:47 30 GM Lactulose (Constulose 20gm/ 30ml Udcup) 40 gm BID PRN PO CONSTIPATION 03/05/24 11:00 03/05/24 11:20 DC Morphine Sulfate (morPHINE 2MG SYG) 2 mg Q4H PRN IVP SEVERE PAIN (7-10) 03/04/24 05:00 03/11/24 04:59 Ondansetron HCl (zoFRAN 4MG INJ) 4 mg Q6H PRN IV NAUSEA/VOMITING 03/04/24 04:30 04/03/24 04:29 Potassium Chloride 100 ml @ 100 mls/hr AD PRN IV POTASSIUM PROTOCOL 03/04/24 12:00 04/03/24 11:59 Potassium Chloride (K-Dur/Klor-Con 20meq) 20 meq AD PRN PO POTASSIUM PROTOCOL 03/04/24 12:00 04/03/24 11:59 Potassium Chloride (KCl 10% Elixir 20meq/15ml) 20 meq AD PRN PO POTASSIUM PROTOCOL 03/04/24 12:00 04/03/24 11:59 Diagnostics / Radiology: [COPY/PASTE HERE IF NO REPORTS PLEASE DELETE SECTION] Assessment: [ ] Plan: 1. NPO 2. EGD in AM. I have discussed the risks, benefits, alternatives, and potential complications. Questions were answered and they agree to proceed. 3. Octreotide 50 mcg IV bolus and then 50 mcg/hr IV infusion for 72 hours 4. Pantoprazole 40 mg IV q 12 hours 5. Recommend checking Hg every 6 hours and transfuse to goal Hg >7. Please do not overtransfuse 6. Ceftriaxone 1 g IV q 24 hours for infection prophylaxis 7. Lactulose 30 g po BID and titrate to induce 3-4 soft BMs daily 8. Please avoid benzodiazepines and sedatives if possible since this will worsen hepatic encephalopathy 9. Please avoid nephrotoxins 10. Please contact our service if the patient has significant bleeding such as overt hematemesis and we can proceed sooner with the EGD Thanks you for allowing us to participate in the care of this patient! LEONARDO MCRAE WAGON WINDER Mar 05, 2024 18:39
[2024-03-05] MEDS: LACTULOSE 20 GM/30 ML UDCUP PO SCH (19:30)
[2024-03-05] MEDS ORDERED: LACTULOSE 20 GM/30 ML UDCUP PO SCH (21:00)
[2024-03-06] VITALS (23 sets, daily range): BP systolic 112–138; BP diastolic 53–72; PULSE 63–82; RESP 15–20; TEMP 97.7–100.4; O2SAT 98
[2024-03-06 06:18] LABS: BASOPHILS # (AUTO) 0.02 K/uL (0.00-0.20); BASOPHILS % (AUTO) 0.5 % (0.0-5.0); EOSINOPHILS # (AUTO) 0.22 K/uL (0.00-0.70); EOSINOPHILS % (AUTO) 5.9 % (0.0-8.0); HEMATOCRIT 27.3 % (42-54); IMMATURE GRANULOCYTE ABSOLUTE 0.01 K/uL (0-1); LYMPHOCYTES # (AUTO) 1.2 K/uL (1.0-4.8); LYMPHOCYTES % (AUTO) 33.2 % (21.0-51.0); MEAN CORPUSCULAR HEMOGLOBIN 32.9 pg (27.0-33.0); MEAN CORPUSCULAR HGB CONC 33.3 g/dL (32.0-36.0); MEAN CORPUSCULAR VOLUME 98.6 fL (79-99); MONOCYTES # (AUTO) 0.5 K/uL (0.1-1.0); MONOCYTES % (AUTO) 13.7 % (3.0-13.0); NEUTROPHILS # (AUTO) 1.7 K/uL (1.8-7.7); NEUTROPHILS % (AUTO) 46.4 % (40.0-77.0); PLATELET COUNT (AUTO) 32 K/uL (130-400); RED BLOOD CELL COUNT(AUTO) 2.77 MIL/uL (4.50-6.20); RED CELL DISTRIBUTION WIDTH 14.8 % (11.0-15.5); WHITE BLOOD COUNT (AUTO) 3.7 K/uL (4.8-10.8)
[2024-03-06 06:33] LABS: INR 1.19 (0.85-1.15); PROTHROMBIN TIME 13.1 SEC (9.6-11.6)
[2024-03-06 06:34] LABS: PARTIAL THROMBOPLASTIN TIME 29.3 SEC (26.3-35.5)
[2024-03-06 06:47] LABS: BILIRUBIN,TOTAL 1.3 mg/dL (0.2-1.0); CREATININE 1.6 mg/dL (0.5-1.3); POTASSIUM 4.1 mmol/L (3.5-5.1); TOTAL PROTEIN, SERUM 6.9 g/dL (6.0-8.3)
--- NOTE | 2024-03-06 11:07 | NUR ---
NOTE 1ST PLATELET INFUSING. KELVIN GUY TAKING PATIENT TO GI LAB FOR PROCEDURE. WILL COMPLETE 2ND PLATELET PRODUCT IN GI LAB.
[2024-03-06] MEDS ORDERED: proPOFol 10 MG/ML 20ML VIAL IV ONE (12:00)
[2024-03-06] MEDS ORDERED: LIDOCAINE PF 100MG/5ML (2%) SYRINGE 5ML ONE (12:00)
--- NOTE | 2024-03-06 13:37 | PN ---
[facility] PROGRESS NOTE Date of Service: Mar 06, 2024 Time of Service: 13:37 SUBJECTIVE: [ ] Mr. Ceballos is an 83-year-old male that was seen and examined today on 03/04/2024. Patient is a poor historian and personal health. Patient's daughter Chantel Ceballos is at bedside and able to provide the following information. Patient was brought to the emergency department with a chief complaint of altered mental status. Onset was 03/03/2024 at 9:00 p.m.. Location is to head. Duration is constant. Character is described as" like he can not make full sentences. " there was no alleviating factors. Symptoms are aggravated with missing doses of lactulose. 03/04- patient Was seen at the bedside, with his daughter present. patient is still in altered mental status and unable to understand and speak in full sentences. spoke with his daughter about his mental status baseline, she says at home he speaks well and has a good memory. he usually continues to take lactulose syrup at home, but when he misses a dosage he develops a same symptoms. She says he was admitted for hepatic encephalopathy at [facility] around February 21, 2024 and was in the hospital for about 20 days. she says they follow Oncology outpatient in the biopsy results are pending. We will continue the patient on lactulose 20 mg b.i.d. repeat ammonia levels came down from 189 to 55. Vitals stable. WBC 3.8, HB 9.4, MCV 96.1, platelet count 32, immature reticulocyte fraction 13.3, BUN22 , creatinine 1.5, GFR 46 , iron panel iron 98, TIBC 341, % saturation 28.7. Serum ferritin pending. AST31 ALT23 , ALP 153, ammonia 189. PT 12.8, INR 1.16. Occult stool blood positive. Gastrology consultation noted pending on the recommendations.we will repeat the labs in the a.m. 03/05-patient was seen at the bedside, with his daughter present. Patient seems to be understanding, better than yesterday. His altered mental status has imp roved. Patient only had 1 bowel movement yesterday, ammonia last night was 80 and increased to 112 today morning. Gave 45 mL of lactulose at around 1:00 p.m., with scheduled dose of lactulose 30 mL in the morning. Patient still did not have any bowel movement, he has a scheduled dose of 30 mL at night. Change the dose of lactulose from 30 mL b.i.d. to t.i.d. gastrology consultation noted. Ordered for an EGD tomorrow morning NPO after midnight.His vitals are stable. Remarkable labs WBC 3, HB came down to 8.5 from 9.4, platelet count down from 32 to 29, BUN 21, creatinine 1.5, GFR 46. We will recheck the ammonia levels q.12h. And labs in the a.m. 03/06-patient was seen at the bedside with his daughter present. Patient is able to understand and speak well. His altered mental status has improved. Patient had bowel movements since yesterday. Ammonia has current 65. Gastroenterology consult noted, they started him on platelets transfusion. Patient is scheduled for the EGD today and patient is on NPO. Patient is started on full liquids and GI soft diet after the EGD. We will plan for discharge once the EGD reports a normal and cleared from the gastrology. REVIEW OF SYSTEMS CONSTITUTIONAL: Denies fevers, chills, or night sweats. No unintentional weight loss reported. NEUROLOGICAL: Denies headache, amaurosis fugax, motor weakness, sensory deficit, vertigo/spinning sensation, gait abnormalities, or tremors. ENT: No hearing loss, otalgia, otorrhea, rhinitis, rhinorrhea, hoarseness, or sore throat. CARDIOVASCULAR: Denies any exertional angina, dyspnea on exertion, orthopnea, paroxysmal nocturnal dyspnea, palpitations, life-threatening arrhythmias, claudication. PULMONARY: Denies any shortness of breath, cough, phlegm/sputum, hemoptysis, p leuritic chest pain. SLEEP: Denies morning headaches, daytime somnolence or napping. Denies difficulty falling asleep, staying asleep, waking from sleep. Denies knowledge of snoring. GASTROINTESTINAL: Denies any type of dysphagia to either liquids or solids. Denies nausea, vomiting, pyrosis, early satiety, abdominal pain, diarrhea, constipation, or changes in stool consistency or caliber. Denies coffee-ground emesis, hematemesis, hematochezia, or melanotic stools. GENITOURINARY: Denies frequency, urgency, nocturia, hematuria or incontinence (Storage/Irritative symptoms.) Low urinary stream, straining to void, urinary intermittency or hesitancy, splitting of the voiding stream, terminal dribbling. ENDOCRINOLOGIC: Denies polyuria, polydipsia, polyphagia or heat/cold intoler ances. HEMATOLOGIC: Denies thrombophilia/previous clots, or coagulopathy/bleeding disorders. ONCOLOGIC: Denies personal history of malignancy. DERMATOLOGIC: Denies rashes or pruritus. PSYCHIATRIC: Denies any suicidal or homicidal ideation. Denies hallucinations. PHYSICAL EXAM GENERAL APPEARANCE: The patient is awake, alert, and oriented, in no acute cardiopulmonary distress. NEUROLOGICAL: Cranial nerves II-XII grossly intact. Motor is 5/5 in bilateral upper and lower extremities proximal to distal. No sensory deficits. HEENT: Face is symmetric. Pupils are equal and reactive. Extraocular movements are intact. NECK: Supple. No JVD. No thyromegaly. No submental, submandibular, pre- /postauricular, occipital or supraclavicular lymphadenopathy. CHEST: Normal chest expansion. No Telemetry. LUNGS: Absence of any rales, rhonchi or any wheezing. CARDIOVASCULAR: Regular. S1 and S2 normal. No appreciable rubs, murmurs or gallops. ABDOMEN: Soft, nontender, and nondistended. There is no rebound, voluntary guarding, or rigidity. : Deferred. No Tang. EXTREMITIES: Non-edematous and not cyanotic. No clubbing. Good capillary refill. SKIN: No skin breakdown. Vital Signs (last 8hr) Date Time Temp Pulse Resp B/P (MAP) Pulse Ox O2 Delivery O2 Flow Rate FiO2 03/06/24 12:45 97.9 73 17 126/71 97 Room Air 03/06/24 12:40 69 15 128/67 97 Room Air 03/06/24 12:35 67 15 133/72 97 Room Air 03/06/24 12:30 67 16 131/68 98 Room Air 03/06/24 12:25 70 17 122/68 100 Nonrebreathing Mask 10.0 100 03/06/24 12:20 75 15 118/64 100 Nonrebreathing Mask 10.0 100 03/06/24 12:15 97.7 82 15 112/68 100 Nonrebreathing Mask 10.0 100 03/06/24 12:00 Mask 10.0 03/06/24 12:00 Mask 03/06/24 11:32 98.1 68 18 126/67 98 Room Air 0.0 03/06/24 08:00 100.4 67 16 118/58 100 Room Air 0.0 LABS: Laboratory: Test 03/06/24 06:10 03/06/24 05:38 03/05/24 20:45 03/05/24 04:45 Range/Units White Blood Count 3.7 L 4.8-10.8 K/uL Red Blood Count 2.77 L 4.50-6.20 MIL/uL Hemoglobin 9.1 L 14.0-18.0 g/dL Hematocrit 27.3 L 42-54 % Mean Corpuscular Volume 98.6 79-99 fL Mean Corpuscular Hemoglobin 32.9 27.0-33.0 pg Mean Corpuscular Hemoglobin Concent 33.3 32.0-36.0 g/dL Red Cell Distribution Width 14.8 11.0-15.5 % Platelet Count 32 L 130-400 K/uL Mean Platelet Volume 10.0 7.5-10.5 fL Immature Granulocyte % (Auto) 0.3 0-1 % Neutrophils (%) (Auto) 46.4 40.0-77.0 % Lymphocytes (%) (Auto) 33.2 21.0-51.0 % Monocytes (%) (Auto) 13.7 H 3.0-13.0 % Eosinophils (%) (Auto) 5.9 0.0-8.0 % Basophils (%) (Auto) 0.5 0.0-5.0 % Neutrophils # (Auto) 1.7 L 1.8-7.7 K/uL Lymphocytes # (Auto) 1.2 1.0-4.8 K/uL Monocytes # (Auto) 0.5 0.1-1.0 K/uL Eosinophils # (Auto) 0.22 0.00-0.70 K/uL Basophils # (Auto) 0.02 0.00-0.20 K/uL Absolute Immature Granulocyte (auto 0.01 0-1 K/uL Nucleated Red Blood Cells 0.0 0.0-0.19 % Prothrombin Time 13.1 H 9.6-11.6 SEC Prothromb Time International Ratio 1.19 H 0.85-1.15 Activated Partial Thromboplast Time 29.3 26.3-35.5 SEC Sodium Level 142 136-145 mmol/L Potassium Level 4.1 3.5-5.1 mmol/L Chloride Level 109 101-111 mmol/L Carbon Dioxide Level 25 21-32 mmol/L Blood Urea Nitrogen 19 H 7-18 mg/dL Creatinine 1.6 H 0.5-1.3 mg/dL Glomerular Filtration Rate Calc 42 >90 mL/min Random Glucose 100 70-105 mg/dL Total Calcium 8.9 8.5-10.1 mg/dL Total Bilirubin 1.3 H 0.2-1.0 mg/dL Aspartate Amino Transf (AST/SGOT) 58 H 10-37 U/L Alanine Aminotransferase (ALT/SGPT) 32 12-78 U/L Alkaline Phosphatase 150 H 50-136 U/L Total Protein 6.9 6.0-8.3 g/dL Albumin 3.0 L 3.5-5.0 g/dL Whole Blood Glucose 110 70-110 MG/DL Ammonia 65 H 11-32 umol/L Segmented Neutrophils % 74 H 40-70 % Lymphocytes % (Manual) 17 L 22-44 % Monocytes % (Manual) 4 2-9 % Eosinophils % (Manual) 5 1-6 % Differential Comment MANUAL DIFFERENTIAL White Cell Morphology Comment HYPERSEGMENT NEUT 1+ Platelet Morphology Comment MARKED DECREASE Red Blood Cell Morphology NORMAL Lactic Acid Level 2.0 0.8-2.5 mmol/L Phosphorus Level 3.2 2.5-4.9 mg/dL Magnesium Level 1.80 1.80-2.40 mg/dL Ferritin 98 30-400 ng/mL Current Medications Medications (Trade) Dose Ordered Sig/Rox Route PRN Reason Start Time Stop Time Status Last Admin Dose Admin Acetaminophen (TYLenol 325MG TAB) 650 mg Q6H PRN PO TEMPERATURE GREATER THAN 101.5 03/04/24 04:30 04/03/24 04:29 Famotidine (Pepcid 20mg Tab) 20 mg DAILY PO 03/04/24 09:00 04/03/24 08:59 03/05/24 08:58 20 MG Hydralazine HCl (APRESOLine 20MG INJ) 10 mg Q6H PRN IV For:SBP above 160;DBP above 90 03/04/24 04:30 03/04/24 10:39 DC Hydralazine HCl (APRESOLine 20MG INJ) 20 mg Q6H PRN IV ADMINISTER FOR SBP > 160 03/04/24 11:00 04/03/24 10:59 Lactulose (Constulose 20gm/ 30ml Udcup) 20 gm BID PO 03/04/24 09:00 03/05/24 10:56 DC 03/05/24 08:58 20 GM Lactulose (Constulose 20gm/ 30ml Udcup) 20 gm BID PO 03/05/24 21:00 03/05/24 19:05 DC Lactulose (Constulose 20gm/ 30ml Udcup) 20 gm TID PO 03/05/24 19:30 03/07/24 16:20 03/05/24 20:43 20 GM Lactulose (Constulose 20gm/ 30ml Udcup) 30 gm BID PRN PO CONSTIPATION 03/05/24 11:30 04/04/24 11:29 03/05/24 13:47 30 GM Lactulose (Constulose 20gm/ 30ml Udcup) 40 gm BID PRN PO CONSTIPATION 03/05/24 11:00 03/05/24 11:20 DC Morphine Sulfate (morPHINE 2MG SYG) 2 mg Q4H PRN IVP SEVERE PAIN (7-10) 03/04/24 05:00 03/11/24 04:59 Ondansetron HCl (zoFRAN 4MG INJ) 4 mg Q6H PRN IV NAUSEA/VOMITING 03/04/24 04:30 04/03/24 04:29 Potassium Chloride 100 ml @ 100 mls/hr AD PRN IV POTASSIUM PROTOCOL 03/04/24 12:00 04/03/24 11:59 Potassium Chloride (K-Dur/Klor-Con 20meq) 20 meq AD PRN PO POTASSIUM PROTOCOL 03/04/24 12:00 04/03/24 11:59 Potassium Chloride (KCl 10% Elixir 20meq/15ml) 20 meq AD PRN PO POTASSIUM PROTOCOL 03/04/24 12:00 04/03/24 11:59 DIAGNOSTICS / RADIOLOGY: [ ] ASSESSMENT: [ Hepatic encephalopathy, POA Liver cirrhosis, POA Thrombocytopenia, POA MARY ANN on CKD POA Normocytic hyperchromic anemia, POA Hyperlactatemia] PLAN: On full liquids, GI soft diet continue trending patient's ammonia level. continue Administer lactulose 20 g/30 mL every 12 hours. Follow up with the radiology report on CT scan of head-hronic white matter ischemic changes, mild brain atrophy, and arteriosclerotic disease as described, without acute component. Fall precautions. GI consultation noted pending on the recommendations stool for occult blood. positive Decided against fluid resuscitation 30 mL/kg due to patient having plus two pitting edema to bilateral lower extremities and his history of liver cirrhosis Repeat lactic acid in a.m, ferritin levels, CbP, CMP, ammonia. Monitor intake and output every shift Weight patient daily 1500 mL daily fluid restriction GI prophylaxis, famotidine 20 mg by mouth once daily. DVT prophylaxis, Too's and SCDs ATTESTATION BY PHYSICIAN I have seen and examined the patient. I reviewed the documentation, medical decision making, and treatment plan as noted by the mid-level provider above. I agree with the findings and plan of care. Es Patel MD, AISHWARYA MD Mar 06, 2024 13:37
--- NOTE | 2024-03-06 16:00 | NUR ---
Nutrition consult per Pt w/ alcoholic liver cirrhosis Reviewed labs, notes, and medications. PT with alcoholic liver cirrhosis, poor historian, on 75 gm cho, on lactulose, elevated bun 19, elevated Cr 1.6, elevated bilirubin 1.3, elevated ammonia 65 per chart review. 50-75 %PO intake, wt via bed scale, mild pitting, 03/04/24 last BM, well nourished, no wounds per nursing. Recommendations: -Provide 75 gm cho + lo fat + prostat jello tid w/ trays -Monitor PO intake -Encourage PO intake as able -Monitor BM -If no BM >3 days consider stool softener -Monitor electrolytes -Replenish electrolytes per protocol -Monitor wts -Reweigh as able -Order Vit D, vit b-12 labs to rule out deficiencies -Provide NEPHRO-SHELLEY QD -Recommend Pt to follow up with PCP -Monitor goals of care RD to follow + available for consult per protocol Addendum: 03/06/24 at [address] Amended: Links added.
--- NOTE | 2024-03-06 20:15 | NUR ---
MEDS SHIFT ASSESSMENT DONE, PLEASE REFER TO CHART. DUE MEDS ADMINISTERED, TOLERATED WELL. KEPT RESTED AND COMFORTABLE IN BED. CALL LIGHT WITHIN REACH. FAMILY AT BEDSIDE.
[2024-03-06] MEDS ORDERED: LORA-192 PO (20:17)
[2024-03-06] MEDS ORDERED: LACT10SO9 PO (20:17)
[2024-03-07] VITALS: BP 133/65; PULSE 81; RESP 18; TEMP 98.1
--- NOTE | 2024-03-07 00:23 | NUR ---
ANXIETY PT CLAIMS OF FEELING ANXIOUS. PAGED [employer] T[employer] VIA ANSWERING SERVICE, AWAITING FOR CALL BACK.
--- NOTE | 2024-03-07 00:29 | NUR ---
[facility] APPRENTICE MARY KATE CAO CALLED BACK AND REFERRED PT'S ANXIETY. NEW MED ORDER RECEIVED, PLEASE REFER TO CPOE. WILL MEDICATE PT.
[2024-03-07] MEDS: LORazepam 1 MG TABLET PO PRN (00:46)
[2024-03-07 04:00] VITALS: BP 128/64; PULSE 68; RESP 18; TEMP 97.7
--- NOTE | 2024-03-07 06:38 | NUR ---
ROUNDS PT ASSISTED TO THE RESTROOM THEN BACK TO BED. PT ABLE TO URINATE WITHOUT ANY DIFFICULTY. KEPT RESTED IN BED. BED ALARM ACTIVATED. CALL LIGHT WITHIN REACH. FAMILY AT BEDSIDE.
[2024-03-07 08:00] VITALS: BP 125/70; PULSE 69; RESP 18; TEMP 98.1
[2024-03-07 09:00] VITALS: O2SAT 97
[2024-03-07 12:00] VITALS: BP 119/68; PULSE 74; RESP 18; TEMP 98.2
[2024-03-07] MEDS ORDERED: FAMO-290 PO (12:53)
--- NOTE | 2024-03-07 12:54 | DS ---
Discharge Summary Hospital Course Summary: Mr. Ceballos is an 83-year-old male that was seen and examined today on 03/04/2024. Patient is a poor historian and personal health. Patient's daughter Chantel Ceballos is at bedside and able to provide the following information. Patient was brought to the emergency department with a chief complaint of altered mental status. Onset was 03/03/2024 at 9:00 p.m.. Location is to head. Duration is constant. Character is described as" like he can not make full sentences. " there was no alleviating factors. Symptoms are aggravated with missing doses of lactulose. 03/04- patient Was seen at the bedside, with his daughter present. patient is still in altered mental status and unable to understand and speak in full sentences. spoke with his daughter about his mental status baseline, she says at home he speaks well and has a good memory. he usually continues to take lactulose syrup at home, but when he misses a dosage he develops a same symptoms. She says he was admitted for hepatic encephalopathy at [facility] around February 21, 2024 and was in the hospital for about 20 days. she says they follow Oncology outpatient in the biopsy results are pending. We will continue the patient on lactulose 20 mg b.i.d. repeat ammonia levels came down from 189 to 55. Vitals stable. WBC 3.8, HB 9.4, MCV 96.1, platelet count 32, immature reticulocyte fraction 13.3, BUN22 , creatinine 1.5, GFR 46 , iron panel iron 98, TIBC 341, % saturation 28.7. Serum ferritin pending. AST31 ALT23 , ALP 153, ammonia 189. PT 12.8, INR 1.16. Occult stool blood positive. Gastrology consultation noted pending on the recommendations.we will repeat the labs in the a.m. 03/05-patient was seen at the bedside, with his daughter present. Patient seems to be understanding, better than yesterday. His altered mental status has improved. Patient only had 1 bowel movement yesterday, ammonia last night was 80 and increased to 112 today morning. Gave 45 mL of lactulose at around 1:00 p.m., with scheduled dose of lactulose 30 mL in the morning. Patient still did not have any bowel movement, he has a scheduled dose of 30 mL at night. Change the dose of lactulose from 30 mL b.i.d. to t.i.d. gastrology consultation noted. Ordered for an EGD tomorrow morning NPO after midnight.His vitals are stable. Remarkable labs WBC 3, HB came down to 8.5 from 9.4, platelet count down from 32 to 29, BUN 21, creatinine 1.5, GFR 46. We will recheck the ammonia levels q.12h. And labs in the a.m. 03/06-patient was seen at the bedside with his daughter present. Patient is able to understand and speak well. His altered mental status has improved. Patient had bowel movements since yesterday. Ammonia has current 65. Gastroenterology consult noted, they started him on platelets transfusion. Patient is scheduled for the EGD today and patient is on NPO. Patient is started on full liquids and GI soft diet after the EGD. We will plan for discharge once the EGD reports a normal and cleared from the gastrology. 03/07/2023 patient tolerating diet status post EGD. Portal gastropathy biopsy grade 2 esophageal varices incompletely eradicated banded we will follow-up with Dr. Blanco one-week patient is clinically stable for discharge. Assessment/Plan: discharged dxs' [ Hepatic encephalopathy, POA resolved Liver cirrhosis, POA Thrombocytopenia, POA staple MARY ANN on CKD POA Normocytic hyperchromic anemia, POA Hyperlactatemia] s/p EGD: Portal Hypertensive gastropathy, Grade II Esophageal Varcies eradicated banded. PLAN: ADMISSION DATE: DISCHARGE DATE: 03/07/2024 DISPOSITION: Home CONDITION: Stable ORTHODONTIST VICE PRESIDENT(S): GI DR Shaw FOLLOW UP APPOINTMENT(S): GI 1-2 weeks, PCP ronel Osman : 2-3 days PROCEDURES: EGD Portal Hypertensive gastropathy, Grade II Esophageal Varcies eradicated banded. IMAGING (S) report attached to summary : MICROBIOLOGY: report attached to summary; ACTIVITY: Ad jorge luis walker HOME MEDICATIONS remain the same CHANGES ON HOME MEDICATIONS none NEW MEDICATIONS famotidine 20 mg po bid Diet: GI soft diet TEACHING: Fall precautions Emergency instructions: The patient was instructed to present to the nearest Emergency Department or call 911 should their symptoms return or worsen. Home Medications: Reported Medications Lactulose (Lactulose) 20 Gram/30 Ml Solution, 20 GM PO TID, ML 03/06/24 Lorazepam (Ativan) 1 Mg Tablet, 1 MG PO Q6HPRN PRN for ANXIETY/AGITATION, TAB 03/06/24 Discontinued Reported Medications [Pomi-T Dietary Vit] No Conflict Check, 1 CAP PO AM 09/21/16 Aspirin (ASPIRIN 81MG CHEW TAB) 81 Mg Tab.chew, 81 MG PO AMNOON, TAB.CHEW 09/21/16 Omeprazole (Omeprazole) 40 Mg Capsule.dr, 40 MG PO HS, CAP 09/21/16 Bisacodyl (Bisacodyl) 5 Mg Tablet.dr, 5 MG PO DAILY, TAB 11/12/14 Lorazepam (Lorazepam) 1 Mg Tablet, 1 MG PO DAILY PRN for ANXIETY/AGITATION, TAB 11/12/14 Continued Medications: Lactulose (Lactulose) 20 Gram/30 Ml Solution 20 GM PO TID, ML Lorazepam (Ativan) 1 Mg Tablet 1 MG PO Q6HPRN PRN for ANXIETY/AGITATION, TAB Time spent arranging discharge: 31-60 minutes ATTESTATION BY PHYSICIAN I have seen and examined the patient. I reviewed the documentation, medical decision making, and treatment plan as noted by the mid-level provider above. I agree with the findings and plan of care. VIRI ARRIETA MD, ELIZABETH NP Mar 07, 2024 12:54
--- NOTE | 2024-03-07 14:36 | NUR ---
NOTE DISCHARGE INSTRUCTIONS GIVEN TO PATIENT AND DAUGHTER, BOTH STATED UNDERSTANDING. ALL QUESTIONS ANSWERED.
== END 2024-03-07 14:55 | disposition home or self-care (01) | DRG 442 ==
LOC: EDH 02:37 → EDHIP 04:30 → 3CH 04:54
PROVIDERS: ADMIT Internal Medicine; ATTEND Internal Medicine
PROC: 06L38CZ Occlusion of Esophageal Vein with Extraluminal Device, Via Natural or Artificial Opening Endoscopic (ICD-10-PCS; principal; 2024-03-06)
PROC: 0DB68ZX Excision of Stomach, Via Natural or Artificial Opening Endoscopic, Diagnostic (ICD-10-PCS; 2024-03-06)
PROC: 30233R1 Transfusion of Nonautologous Platelets into Peripheral Vein, Percutaneous Approach (ICD-10-PCS; 2024-03-06)
DX: K76.82 Hepatic encephalopathy (principal); I85.00 Esophageal varices without bleeding; K76.6 Portal hypertension; N17.9 Acute kidney failure, unspecified; K74.69 Other cirrhosis of liver; D64.9 Anemia, unspecified; N18.9 Chronic kidney disease, unspecified; K31.89 Other diseases of stomach and duodenum; Z82.0 Family history of epilepsy and other diseases of the nervous system; Z82.3 Family history of stroke; Z82.49 Family history of ischemic heart disease and other diseases of the circulatory system; Z82.5 Family history of asthma and other chronic lower respiratory diseases; Z83.3 Family history of diabetes mellitus; Z63.4 Disappearance and death of family member; Z79.899 Other long term (current) drug therapy
CPT/HCPCS: 36415; 36430; 43239; 43244; 70450; 71045; 80048; 80053; 80076; 81001; 82140; 82270; 82306; 82550; 82607; 82728; 82948; 83540; 83550; 83605; 83615; 83735; 83880; 84100; 84484; 85025; 85045; 85610; 85730; 86850; 86900; 86901; 87040; 99291; A4606; G0378; J2003; J2704; J7030; P9034; A4215; A4222; A4223; A4620; A4657; J3490

== ENCOUNTER → 2024-06-18 | Outpatient (CLI) | payer MEDICARE ==
[~2024-06-18] MED LIST changes: -ASPI-1005 PO; -BISA-151 PO; +FAMO-290 PO; +LACT10SO9 PO; +LORA-192 PO; -LORA1TAB3 PO; -OMEP40CA21 PO; -[UNRECOGNIZED DRUG - OTHER] PO
[2024-06-18 10:17] LABS: EOSINOPHILS # (AUTO) 0.23 K/uL (0.00-0.70); EOSINOPHILS % (AUTO) 6.8 % (0.0-8.0); HEMATOCRIT 25.7 % (42-54); IMMATURE GRANULOCYTE ABSOLUTE 0.01 K/uL (0-1); LYMPHOCYTES # (AUTO) 0.6 K/uL (1.0-4.8); MEAN CORPUSCULAR HEMOGLOBIN 32.9 pg (27.0-33.0); MEAN CORPUSCULAR HGB CONC 32.7 g/dL (32.0-36.0); MEAN CORPUSCULAR VOLUME 100.8 fL (79-99); MONOCYTES # (AUTO) 0.3 K/uL (0.1-1.0); MONOCYTES % (AUTO) 10.1 % (3.0-13.0); NEUTROPHILS # (AUTO) 2.2 K/uL (1.8-7.7); NEUTROPHILS % (AUTO) 63.8 % (40.0-77.0); PLATELET COUNT (AUTO) 31 K/uL (130-400); RED BLOOD CELL COUNT(AUTO) 2.55 MIL/uL (4.50-6.20); RED CELL DISTRIBUTION WIDTH 15.2 % (11.0-15.5); WHITE BLOOD COUNT (AUTO) 3.4 K/uL (4.8-10.8)
== END | disposition home or self-care (01) ==
LOC: LAB 09:40
PROVIDERS: ATTEND Internal Medicine Gastroenterology
DX: K74.60 Unspecified cirrhosis of liver (principal)
CPT/HCPCS: 36415; 85025

== ENCOUNTER 2024-06-24 05:53 | Day surgery (SDC) | payer MEDICARE ==
[~2024-06-24] VITALS: Ht 157.5 cm; Wt 88.9 kg
[2024-06-24] VITALS (10 sets, daily range): BP systolic 88–129; BP diastolic 50–71; PULSE 70–95; RESP 15–18; TEMP 97.2–99.2
[2024-06-24] MEDS ORDERED: LORA0.5T83 PO (06:45)
[2024-06-24] MEDS ORDERED: FURO20TA4 PO (06:45)
[2024-06-24] MEDS ORDERED: GABA-529 PO (06:45)
[2024-06-24] MEDS ORDERED: FINA5TAB41 PO (06:45)
[2024-06-24] MEDS ORDERED: TAMS-55 PO (06:45)
[2024-06-24] MEDS ORDERED: DOCU100C33 PO (06:45)
[2024-06-24] MEDS: 0.9%NACL 1000ML 1,000 ML IV ONE (06:49)
[2024-06-24] MEDS ORDERED: proPOFol 10 MG/ML 20ML VIAL IV ONE (07:11)
[2024-06-24] MEDS ORDERED: MIDAZOLAM HCL 1 MG/ML 2ML VIAL ONE (07:11)
[2024-06-24] MEDS ORDERED: LIDOCAINE PF 100MG/5ML (2%) SYRINGE 5ML ONE (07:11)
--- NOTE | 2024-06-24 08:19 | NUR ---
Full and complete discharge instructions given to Patient and Family both verbally and in writing. Explained GI procedure precautions and follow up. All questions answered. PIV removed with catheter tip intact. Home with Family W/C to POV.
== END 2024-06-24 08:25 | disposition home or self-care (01) ==
LOC: ENDO 05:53 → DAH 05:53 → ENDO 08:25
PROVIDERS: ATTEND Internal Medicine Gastroenterology
DX: R13.10 Dysphagia, unspecified (principal); K74.60 Unspecified cirrhosis of liver; K31.89 Other diseases of stomach and duodenum; I85.10 Secondary esophageal varices without bleeding; K21.9 Gastro-esophageal reflux disease without esophagitis; F41.9 Anxiety disorder, unspecified; G47.33 Obstructive sleep apnea (adult) (pediatric); C22.9 Malignant neoplasm of liver, not specified as primary or secondary; D73.4 Cyst of spleen; K59.00 Constipation, unspecified; K22.89 Other specified disease of esophagus; K26.9 Duodenal ulcer, unspecified as acute or chronic, without hemorrhage or perforation; Z79.899 Other long term (current) drug therapy
CPT/HCPCS: 43239; J7030; J2003; J2250; J2704; A4620; A4215 ×2; A4223; A4222; A4221; A4663; A4606; J3490

== ENCOUNTER 2024-06-30 05:50 | Emergency (ER) | payer MEDICARE ==
[~2024-06-30] VITALS: Ht 160 cm; Wt 87.1 kg
[~2024-06-30 05:50] MED LIST changes: +DOCU100C33 PO; -FAMO-290 PO; +FINA5TAB41 PO; +FURO20TA4 PO; +GABA-529 PO; -LACT10SO9 PO; -LORA-192 PO; +LORA0.5T83 PO; +TAMS-55 PO
[2024-06-30 06:29] VITALS: TEMP 98.4
--- NOTE | 2024-06-30 06:37 | ERN ---
General Chief Complaint: Nosebleed Stated Complaint: C/O NOSE BLEED ON AND OFF DURING THE NIGHT Time Seen by MD: 05:59 History of Present Illness Initial Comments Mr. Ceballos is a very pleasant 83-year-old male history of liver cirrhosis, BPH, hepatocellular carcinoma who comes in today with a chief complaint of nosebleeds. Patient apparently woke up at 1:00 p.m. with nosebleeds. Patient apparently was wearing a CPAP and does get nosebleeds. Patient apparently is able to control it at home but unfortunately has had worsening bleeding. Patient's family decided to come in here for further evaluation and care Allergies: Coded Allergies: No Known Drug Allergies (Unverified Allergy, Unknown, 11/10/14) Home Meds Reported Medications Gabapentin (Gabapentin) 100 Mg Capsule, 1 CAP PO HS for 30 Days, #90 CAP 0 Refills 06/24/24 Furosemide (Furosemide) 20 Mg Tablet, 1 TAB PO DAILY for 30 Days, #30 TAB 0 Refills 06/24/24 Docusate Sodium (Docusate Sodium) 100 Mg Capsule, 1 CAP PO DAILY for constipation for 30 Days, #30 CAP 0 Refills 06/24/24 Lorazepam (Ativan) 0.5 Mg Tablet, 1 TAB PO HS PRN for anxiety for 30 Days, #60 TAB 0 Refills 06/24/24 Tamsulosin HCl (Flomax) 0.4 Mg Cap.er.24h, 1 CAP PO DAILY for 30 Days, #30 CAP 0 Refills 06/24/24 Finasteride (Finasteride) 5 Mg Tablet, 1 TAB PO DAILY for 30 Days, #30 TAB 0 Refills 06/24/24 Discontinued Reported Medications Lactulose (Lactulose) 20 Gram/30 Ml Solution, 20 GM PO TID, ML 03/06/24 Lorazepam (Ativan) 1 Mg Tablet, 1 MG PO Q6HPRN PRN for ANXIETY/AGITATION, TAB 03/06/24 Discontinued Scripts Famotidine (Famotidine) 10 Mg Tablet, 1 TAB PO BID for 30 Days, #60 TAB 0 Refills Prov:ANKIT ORTIZ ADMINISTRATIVE SUPPORT ASSOCIATE 03/07/24 Past Medical History Past Medical History: Other Medical History Other: CIRRHOSIS OF LIVER; SLEEP APNEA Past Surgical History: Unknown ROS Dictation Constitutional: Negative for fever,chills, and weight loss Eyes: Negative for injury, pain,redness, and discharge ENT: Positive for nasal bleeding Cardiovascular: Negative for chest pain, palpitations, and edema Respiratory: Negative for shortness of breath, cough, and wheezing, Abdomen/GI: Negative for abdominal pain, nausea, vomiting, diarrhea, and constipation Back: Negative for injury and pain : Negative for injury, bleeding and discharge MS/Extremity: Negative for injury and deformity Skin: Negative for rash, and discoloration Neuro: Negative for headache, weakness, numbness, tingling, and seizure Psych: Negative for suicide ideation, homicidal ideation, and hallucinations Physical Exam Physical Exam Dictation General: awake, alert, NAD Head/Face: Normocephalic, atraumatic Eyes: PERRL, EOMI, vision at baseline ENT: Bilateral nasal bleeding primarily right very the left Neck: Trachea midline, supple, no nuchal rigidity Cardiovascular: RRR, normal S1/S2, No MRGs, no JVD Respiratory: CTAB, no respiratory distress, No rales or wheezes Abdomen: Soft, non-tender, non-distended, normal bowel sounds, no guarding or rebound. Skin: Warm, dry, normal turgor, no rash MS/Extremity: Pulses equal, no cyanosis, neurovascular intact, FROM Neuro: COAx4, GCS 15, strength 5/5, CN 2-12 intact, normal cerebellar exam, normal gait, Psych: Normal behavior, mood, and affect normal Results Laboratory and Microbiology Labs Reviewed?: Yes MDM MDM: Differential diagnosis: Epistaxis, anterior epistaxis, posterior epistaxis, Rationale: Tests considered and ordered secondary to shared decision making include: Previous outside records reviewed: Old ER visits. Risk of complication and/or morbidity or mortality of patient management: None Patient is a 83-year-old male coming in to be evaluated for epistaxis. Patient is a history of liver cirrhosis and has been having more bout of nasal bleeding. Rhino rocket was placed after oxymetazoline was applied. Rhino rocket was covered with triple antibiotic cream patient tolerated procedure well epistaxis subsided. Patient will be discharged in stable condition with a diagnosis of epistaxis. ED Course Orders Procedure Category Date Status Time Oxymetazolone Hcl PHA 06/30/24 In Process [place] (Afrin) 07:00 *Nursing CPOE 06/30/24 Transmitted Communication: 06:21 Neomy PHA 06/30/24 Complete Sulf/Bacitra/Polymyxin 07:30 Neomy PHA 06/30/24 Complete Sulf/Bacitra/Polymyxin 07:32 Current Medications Medications (Trade) Dose Ordered Sig/Rox Route PRN Reason Start Time Stop Time Status Last Admin Dose Admin Neomycin/ Polymyxin/ Bacitracin (Triple Antibiotic Ointment) 1 appl ONCE ONCE TP 06/30/24 07:30 06/30/24 07:33 DC Neomycin/ Polymyxin/ Bacitracin (Triple Antibiotic Ointment) 1 appl STK-MED ONCE TP 06/30/24 07:32 06/30/24 07:32 DC Oxymetazoline HCl (AFrin) 2 SPRAYS Q12H EN 06/30/24 07:00 07/02/24 22:00 06/30/24 06:46 Vital Signs Date Time Temp Pulse Resp B/P (MAP) Pulse Ox O2 Delivery O2 Flow Rate FiO2 06/30/24 06:29 98.4 75 18 130/87 100 Room Air* 0 21 06/30/24 05:53 98.4 86 20 133/80 100 Room Air Procedure Dictation Anterior epistaxis oxymetazoline applied to both nares. Triple antibiotic cream was used to cover rhino rocket 5.5 slowly inserting it into place and then inflating it to 10 cc. Patient tolerated procedure well epistaxis subsided. DX & DISP Disposition: Discharge Departure Impression: Primary Impression: Epistaxis Condition: Stable Additional Instructions: FOLLOW-UP WITH PRIMARY CARE PROVIDER IN 1 TO 2 DAYS. TAKE MEDICATIONS DIRECTED HERE IN THE EMERGENCY ROOM. OKAY TO CONTINUE HOME MEDICATIONS UNLESS OTHERWISE DISCUSSED DURING YOUR VISIT IN THE EMERGENCY ROOM TODAY. RETURN TO YOUR NEAREST EMERGENCY ROOM IF SYMPTOMS WORSEN OR IF THERE IS NO IMPROVEMENT. CALL 911 IF YOU NEED IMMEDIATE ASSISTANCE. TAKE TYLENOL [id number] NEEDED AND IF NO CONTRAINDICATIONS ARE PRESENT. INCREASE ORAL HYDRATION. A WOUND CULTURE OR URINE CULTURE WAS ORDERED HERE IN THE EMERGENCY ROOM DEPARTMENT PLEASE FOLLOW-UP WITH PRIMARY CARE PROVIDER AND ADVISE THEM TO GET REPEAT PORTS FROM OUR FACILITY. IF YOU HAD ANY MARIA LUISA WRAP/SPLINTS THAT WERE APPLIED HERE, PL EASE DO NOT REMOVE THEM UNTIL YOU SEE YOUR PRIMARY CARE OR SPECIALTY. Referrals: Referrals: KELSEY ZAMORANO MD (PCP) Time of Disposition: 07:39 HELDER ARIAS MD Jun 30, 2024 06:37 SHERICE LOUISE MD Jun 30, 2024 07:41
[2024-06-30] MEDS: OXYmetazoline HCL SPRAY 100 SPRAYS/15 ML BOTTLE EN SCH (06:46)
--- NOTE | 2024-06-30 06:55 | NUR ---
REPORT RECEIVED FROM ALEJANDRO GUY
--- NOTE | 2024-06-30 07:10 | NUR ---
PT SITTING IN THE HIGH FOWLERS POSITION. NO SIGNS OF ANY BLEEDING FROM HIS NARES AT THIS TIME. HE WAS GIVEN NASAL SPRAY AND HAS A NOSE CLAMP ON AT THIS TIME. HIS DAUGHTER TREVOR IS AT THE BEDSIDE.
--- NOTE | 2024-06-30 07:28 | NUR ---
PT WAS ASSISTED OOB TO BR AND UPON RETURNING, HE HAD VERY MINIMAL DRAINAGE FROM HIS R NARE OF BLOOD. PER DAUGHTER, HE HAS LIVER ISSUES WHICH MAKES HIS BLOOD THIN AND HE HAS HAD HX OF NOSE BLEEDS.
--- NOTE | 2024-06-30 07:36 | NUR ---
RHINO ROCKET: DR ASPEN CARTAGENA INSERTED A 5.65CM RHINO ROCKET INTO THE R NARE. INSTRUCTIONS WERE PROVIDED TO PT/DAUGHTER FOR IT TO REMAIN IN PLACED FOR 2-3 DAYS. THE BALLOON WAS FILLED W/8MLS OF AIR.
[2024-06-30] MEDS: NEOMY SULF/BACITRA/POLYMYXIN B 1 EACH PACKET TP ONE ×2 (07:41)
[2024-06-30 07:49] VITALS: BP 154/82; PULSE 90; RESP 18; O2SAT 100
== END 2024-06-30 08:20 | disposition home or self-care (01) ==
LOC: EDH 05:50
DX: R04.0 Epistaxis (principal); Z79.899 Other long term (current) drug therapy
CPT/HCPCS: 30901; 99284

== ENCOUNTER → 2024-08-13 | Outpatient (CLI) | payer MEDICARE ==
[~2024-08-13] MED LIST changes: +IOHEXOL 350 MG/ML 100ML INFUS..BTL IV ONE
--- NOTE | 2024-08-13 10:32 | HMCIMG ---
Exam Type: CT angiogram abdomen and pelvis with contrast Clinical Information: Abdominal aortic aneurysm, without rupture, unspecified Comparison: October 17, 2020 Technique: Routine helical scanning at 5mm collimation through the abdomen and pelvis after contrast administration. In addition, sagittal and coronary formations of the abdomen pelvis and surface rendering three-dimensional reconstructions of the abdominal aorta were performed. Findings: The lung bases are clear. The pancreas, adrenal glands and kidneys are normal in appearance. The gallbladder is unremarkable. The liver is irregular suggestive of cirrhosis and there is a low-density lesion of the left liver lobe anterior aspect measuring 4.6 x 3.1 cm which was not present on the prior examination. The spleen is enlarged. There is trace ascites. No pathologic lymphadenopathy is evident. The stomach, bowel loops, and colon are otherwise unremarkable. Specifically, no large or small bowel dilatation or air/ fluid levels are noted to suggest obstruction or adynamic ileus. The pelvic viscera are normal in CT appearance. The perirectal fat planes are clear. The visualized osseous elements are normal for the patient's age. Infrarenal abdominal aortic aneurysm is seen, distally, it has grown when compared with examination of 2020. It now measures 4.5 x 4.1 cm, versus maximum diameter 3.6 cm on the prior exam. The plaque is eccentric an exophytic, mostly left-sided and there is no occlusion. 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 IMPRESSION: In the size of the abdominal aortic aneurysm when compared to prior examination. Other findings as described. This study was performed using dose reduction techniques to include automated exposure control and/or adjustment of the mA and/or kV according to patient size.
== END | disposition home or self-care (01) ==
LOC: RAH 08:52
PROVIDERS: ATTEND Nurse Practitioner Family
DX: I71.40 Abdominal aortic aneurysm, without rupture, unspecified (principal)
CPT/HCPCS: 74174; Q9967